=== PATIENT | male | born 1980 | race Caucasian/White ===

== ENCOUNTER 2017-01-09 16:53 | Emergency (ER) | payer MEDICAID, OTHER ==
[~2017-01-09] VITALS: Ht 180.3 cm; Wt 113.6 kg
[~2017-01-09 16:53] MED LIST: OLAN10TA3 PO
[2017-01-09] MEDS ORDERED: CITA20TA9 PO (17:02)
[2017-01-09] MEDS ORDERED: HALO5 PO (17:02)
[2017-01-09] MEDS ORDERED: QUET400T12 PO (17:02)
[2017-01-09 17:17] LABS: BASOPHILS % (AUTO) 0.3 % (0.0-2.0); EOSINOPHILS % (AUTO) 1.1 % (1.0-6.0); HEMOGLOBIN 15.2 g/dL (13.5-17.5); LYMPHOCYTES # (AUTO) 1.8 K/uL (1.0-4.8); LYMPHOCYTES % (AUTO) 17.4 % (22.0-44.0); MEAN CORPUSCULAR HEMOGLOBIN 29.1 pg (26.0-34.0); MEAN CORPUSCULAR HGB CONC 32.9 G/dL (31.0-37.0); MEAN CORPUSCULAR VOLUME 88 fL (80-100); MONOCYTES # (AUTO) 0.7 K/uL (0.1-1.0); MONOCYTES % (AUTO) 7.2 % (2.0-9.0); NEUTROPHILS # (AUTO) 7.7 K/uL (1.8-7.7); PLATELET COUNT (AUTO) 191 K/uL (150-450); RED CELL DISTRIBUTION WIDTH 15.1 % (11.5-14.5); WHITE BLOOD COUNT (AUTO) 10.4 K/uL (4.5-11.0)
[2017-01-09 17:35] LABS: ANION GAP 8 mmol/L (8-16); CALCIUM, TOTAL 8.4 mg/dL (8.8-10.5); CARBON DIOXIDE 31 mmol/L (22-29); CHLORIDE 104 mmol/L (98-107); CREATININE 0.94 mg/dL (0.60-1.30); GLOMERULAR FILTR. RATE CALC > 60 mL/min (>60); POTASSIUM 3.7 mmol/L (3.5-5.1); SODIUM SERUM 143 mmol/L (136-145); UREA NITROGEN, BLOOD 11 mg/dL (7-18)
[2017-01-09 17:44] LABS: ALANINE AMINOTRANSFERASE 99 U/L (12-78); ALBUMIN 3.4 g/dL (3.4-5.0); ASPARTATE AMINOTRANSFERASE 42 U/L (15-37); BILIRUBIN,TOTAL 0.3 mg/dL (0.1-1.0); TOTAL PROTEIN, SERUM 7.6 g/dL (6.4-8.2)
[2017-01-09 20:07] VITALS: BP 124/78
== END 2017-01-09 20:37 | disposition home or self-care (01) ==
LOC: EMS 16:54
DX: F25.9 Schizoaffective disorder, unspecified (principal); R79.89 Other specified abnormal findings of blood chemistry; F17.210 Nicotine dependence, cigarettes, uncomplicated; F31.9 Bipolar disorder, unspecified
CPT/HCPCS: 36415; 80053; 80307; 85025; 99284; G0480

== ENCOUNTER 2017-01-16 15:22 | Inpatient (IN) | payer MEDICAID, OTHER ==
[~2017-01-16] VITALS: Ht 180.3 cm; Wt 130.7 kg
[~2017-01-16 15:22] MED LIST changes: +CITA20TA9 PO; +HALO5 PO; -OLAN10TA3 PO; +QUET400T12 PO
[2017-01-16] MEDS ORDERED: ARIP10TA14 PO (16:19)
[2017-01-16] MEDS ORDERED: LORazepam 2 MG TABLET PO ONE (16:45)
[2017-01-16] MEDS ORDERED: HALOPERIDOL 5 MG TABLET PO ONE (16:45)
[2017-01-16] MEDS ORDERED: ZOLPIDEM TARTRATE 10 MG TABLET PO PRN (16:45)
[2017-01-16 17:49] LABS: BASOPHILS # (AUTO) 0.06 K/uL (0.00-0.20); BASOPHILS % (AUTO) 0.5 % (0.0-2.0); EOSINOPHILS # (AUTO) 0.14 K/uL (0.00-0.70); EOSINOPHILS % (AUTO) 1.25 % (1.0-6.0); HEMATOCRIT 46.6 % (41-53); HEMOGLOBIN 15.3 g/dL (13.5-17.5); LYMPHOCYTES # (AUTO) 1.5 K/uL (1.0-4.8); LYMPHOCYTES % (AUTO) 13.5 % (22.0-44.0); MEAN CORPUSCULAR HEMOGLOBIN 28.7 pg (26.0-34.0); MEAN CORPUSCULAR HGB CONC 32.9 G/dL (31.0-37.0); MEAN CORPUSCULAR VOLUME 87 fL (80-100); MONOCYTES # (AUTO) 0.5 K/uL (0.1-1.0); MONOCYTES % (AUTO) 4.2 % (2.0-9.0); NEUTROPHILS # (AUTO) 8.8 K/uL (1.8-7.7); NEUTROPHILS % (AUTO) 80.6 % (40.0-70.0); PLATELET COUNT (AUTO) 176 K/uL (150-450); RED BLOOD CELL COUNT(AUTO) 5.34 MIL/uL (4.50-5.90); RED CELL DISTRIBUTION WIDTH 14.9 % (11.5-14.5); WHITE BLOOD COUNT (AUTO) 10.9 K/uL (4.5-11.0)
[2017-01-16 18:01] LABS: ANION GAP 7 mmol/L (8-16); CALCIUM, TOTAL 8.5 mg/dL (8.8-10.5); CARBON DIOXIDE 30 mmol/L (22-29); CHLORIDE 102 mmol/L (98-107); CREATININE 1.03 mg/dL (0.60-1.30); GLOMERULAR FILTR. RATE CALC > 60 mL/min (>60); POTASSIUM 3.8 mmol/L (3.5-5.1); SODIUM SERUM 139 mmol/L (136-145); UREA NITROGEN, BLOOD 12 mg/dL (7-18)
[2017-01-16 18:07] LABS: ALANINE AMINOTRANSFERASE 88 U/L (12-78); ALBUMIN 3.3 g/dL (3.4-5.0); ASPARTATE AMINOTRANSFERASE 44 U/L (15-37); BILIRUBIN,TOTAL 0.3 mg/dL (0.1-1.0); TOTAL PROTEIN, SERUM 7.4 g/dL (6.4-8.2)
[2017-01-16] MEDS: AmLODIPine BESYLATE 5 MG TABLET PO SCH (20:06)
[2017-01-16] MEDS: HALOPERIDOL 5 MG TABLET PO PRN (20:30)
[2017-01-16] MEDS: LORazepam 2 MG TABLET PO PRN (20:30)
[2017-01-16] MEDS ORDERED: INFLUENZA VIRUS VACCINE QVS 2016-17 (3YR+)/PF 60 MCG/0.5 ML SYRINGE IM ONE (21:30)
[2017-01-17 08:00] VITALS: BP 127/62
[2017-01-17] MEDS: AmLODIPine BESYLATE 5 MG TABLET PO SCH (09:40)
[2017-01-17] MEDS: NICOTINE 21 MG/24 HOUR PATCH TD SCH (09:41)
[2017-01-17] MEDS ORDERED: CITA10TA68 PO (13:25)
[2017-01-17 16:30] VITALS: BP 128/70
[2017-01-17] MEDS ORDERED: OLANZapine 10 MG TABLET PO SCH (21:00)
[2017-01-17] MEDS ORDERED: IBUPROFEN 400 MG TABLET PO PRN (23:15)
[2017-01-17] MEDS ORDERED: ACETAMINOPHEN 325 MG TABLET PO PRN (23:15)
[2017-01-18 08:00] VITALS: BP 136/95
[2017-01-18] MEDS: LORazepam 2 MG TABLET PO PRN ×2 (08:04→12:08)
[2017-01-18] MEDS: AmLODIPine BESYLATE 5 MG TABLET PO SCH (08:04)
[2017-01-18] MEDS: NICOTINE 21 MG/24 HOUR PATCH TD SCH (08:05)
[2017-01-18] MEDS: HALOPERIDOL 5 MG TABLET PO PRN (11:25)
[2017-01-18 19:13] VITALS: BP 127/60
[2017-01-18] MEDS ORDERED: OLANZapine 10 MG TABLET PO SCH (21:00)
[2017-01-19 04:47] VITALS: BP 128/86
[2017-01-19 08:00] VITALS: BP 157/105
[2017-01-19] MEDS: AmLODIPine BESYLATE 5 MG TABLET PO SCH (08:17)
[2017-01-19] MEDS ORDERED: ARIPiprazole ER SUSPENSION 400 MG PRE-FILLED DUAL CHAMBER SYRINGE IM SCH (09:00)
[2017-01-19] MEDS: NICOTINE 21 MG/24 HOUR PATCH TD SCH (09:00)
[2017-01-19] MEDS: CITALOPRAM HYDROBROMIDE 10 MG TABLET PO SCH (10:02)
[2017-01-19] MEDS: LORazepam 2 MG TABLET PO PRN ×2 (12:26→16:16)
[2017-01-19] MEDS: HALOPERIDOL 5 MG TABLET PO PRN (16:08)
[2017-01-19 16:19] VITALS: BP 142/66
[2017-01-19] MEDS ORDERED: QUEtiapine FUMARATE 200 MG TABLET PO SCH (21:00)
[2017-01-20] MEDS: LORazepam 2 MG TABLET PO PRN (06:40)
[2017-01-20 06:59] VITALS: BP 138/87
[2017-01-20 08:01] VITALS: BP 148/90
[2017-01-20] MEDS: AmLODIPine BESYLATE 5 MG TABLET PO SCH (08:37)
[2017-01-20] MEDS: CITALOPRAM HYDROBROMIDE 10 MG TABLET PO SCH (08:38)
[2017-01-20] MEDS: NICOTINE 21 MG/24 HOUR PATCH TD SCH (08:39)
[2017-01-20] MEDS ORDERED: ARIP400S3 IM (10:16)
[2017-01-20] MEDS ORDERED: AMLO-511 PO (10:19)
== END 2017-01-20 12:15 | disposition home or self-care (01) | DRG 750 ==
LOC: EMS 15:26 → 3EI 18:52
PROVIDERS: ADMIT Psychiatry & Neurology Child & Adolescent Psychiatry; ATTEND Psychiatry & Neurology Child & Adolescent Psychiatry
DX: F25.1 Schizoaffective disorder, depressive type (principal); R45.851 Suicidal ideations; I10 Essential (primary) hypertension; F31.9 Bipolar disorder, unspecified; F12.10 Cannabis abuse, uncomplicated; F10.10 Alcohol abuse, uncomplicated; F17.200 Nicotine dependence, unspecified, uncomplicated; Z79.899 Other long term (current) drug therapy; Z71.41 Alcohol abuse counseling and surveillance of alcoholic; Z71.51 Drug abuse counseling and surveillance of drug abuser; Z28.21 Immunization not carried out because of patient refusal
CPT/HCPCS: 87081; 99285; G0480; J0401

== ENCOUNTER 2017-01-29 02:30 | Inpatient (IN) | payer MEDICAID, OTHER ==
[~2017-01-29] VITALS: Ht 182.9 cm; Wt 133.4 kg
[~2017-01-29 02:30] MED LIST changes: +AMLO-511 PO; +ARIP400S3 IM; +CITA10TA68 PO; -CITA20TA9 PO; -HALO5 PO
[2017-01-29 03:09] LABS: BASOPHILS % (AUTO) 0.5 % (0.0-2.0); EOSINOPHILS % (AUTO) 4.5 % (1.0-6.0); HEMATOCRIT 47.5 % (41-53); HEMOGLOBIN 15.4 g/dL (13.5-17.5); LYMPHOCYTES # (AUTO) 2.3 K/uL (1.0-4.8); LYMPHOCYTES % (AUTO) 24.4 % (22.0-44.0); MEAN CORPUSCULAR HEMOGLOBIN 28.7 pg (26.0-34.0); MEAN CORPUSCULAR HGB CONC 32.4 G/dL (31.0-37.0); MEAN CORPUSCULAR VOLUME 89 fL (80-100); MONOCYTES # (AUTO) 0.5 K/uL (0.1-1.0); NEUTROPHILS # (AUTO) 6.3 K/uL (1.8-7.7); NEUTROPHILS % (AUTO) 65.6 % (40.0-70.0); PLATELET COUNT (AUTO) 195 K/uL (150-450); RED BLOOD CELL COUNT(AUTO) 5.36 MIL/uL (4.50-5.90); RED CELL DISTRIBUTION WIDTH 15.1 % (11.5-14.5); WHITE BLOOD COUNT (AUTO) 9.6 K/uL (4.5-11.0)
[2017-01-29 03:22] LABS: ANION GAP 8 mmol/L (8-16); CALCIUM, TOTAL 8.5 mg/dL (8.8-10.5); CARBON DIOXIDE 30 mmol/L (22-29); CHLORIDE 103 mmol/L (98-107); CREATININE 0.94 mg/dL (0.60-1.30); GLOMERULAR FILTR. RATE CALC > 60 mL/min (>60); SODIUM SERUM 141 mmol/L (136-145); UREA NITROGEN, BLOOD 12 mg/dL (7-18)
[2017-01-29 03:28] LABS: ALANINE AMINOTRANSFERASE 104 U/L (12-78); ALBUMIN 3.4 g/dL (3.4-5.0); ASPARTATE AMINOTRANSFERASE 82 U/L (15-37); BILIRUBIN,TOTAL 0.4 mg/dL (0.1-1.0); TOTAL PROTEIN, SERUM 7.1 g/dL (6.4-8.2)
[2017-01-29] MEDS ORDERED: ZOLPIDEM TARTRATE 10 MG TABLET PO PRN (06:00)
[2017-01-29 06:12] LABS: APPEARANCE,URINE CLOUDY (CLEAR); GLUCOSE, URINE (UA) NEGATIVE (NEGATIVE); KETONES,URINE NEGATIVE (NEGATIVE); LEUKOCYTE ESTERASE ,URINE NEGATIVE (NEGATIVE); OCCULT BLOOD,URINE NEGATIVE (NEGATIVE); PROTEIN,URINE NEGATIVE (NEGATIVE)
[2017-01-29 06:17] LABS: ADD UA MICROSCOPIC NO
[2017-01-29 09:40] VITALS: BP 159/110
[2017-01-29 12:38] VITALS: BP 128/75
[2017-01-29] MEDS ORDERED: CloNIDine HCL 0.1 MG TABLET PO PRN (14:00)
[2017-01-29] MEDS: CITALOPRAM HYDROBROMIDE 10 MG TABLET PO SCH (14:12)
[2017-01-29] MEDS ORDERED: INFLUENZA VIRUS VACCINE QVS 2016-17 (3YR+)/PF 60 MCG/0.5 ML SYRINGE IM ONE (15:15)
[2017-01-29 16:00] VITALS: BP 135/68
[2017-01-29] MEDS ORDERED: ACETAMINOPHEN 325 MG TABLET PO PRN (17:15)
[2017-01-29] MEDS ORDERED: IBUPROFEN 400 MG TABLET PO PRN (17:15)
[2017-01-29] MEDS: QUEtiapine FUMARATE 200 MG TABLET PO SCH (20:31)
[2017-01-30 06:53] VITALS: BP 128/83
[2017-01-30 08:24] LABS: HEMOGLOBIN A1C 5.7 % (4.5-6.2)
[2017-01-30 08:41] LABS: CHOL/HDL RATIO 3.4 (4.2-7.3); THYROID STIMULATING HORMONE 1.16 uIU/mL (0.36-3.74)
[2017-01-30 08:42] VITALS: BP 107/68
[2017-01-30] MEDS: AmLODIPine BESYLATE 5 MG TABLET PO SCH (09:01)
[2017-01-30] MEDS: CITALOPRAM HYDROBROMIDE 10 MG TABLET PO SCH (09:01)
[2017-01-30 16:00] VITALS: BP 121/74
[2017-01-30] MEDS: LORazepam 2 MG TABLET PO PRN (17:27)
[2017-01-30] MEDS: QUEtiapine FUMARATE 200 MG TABLET PO SCH (21:11)
[2017-01-30 23:01] LABS: GLUCOSE,POINT OF CARE 118 MG/DL (70-110)
[2017-01-31 00:35] VITALS: BP 108/74
[2017-01-31] MEDS: HALOPERIDOL 5 MG TABLET PO PRN ×2 (01:24→16:45)
[2017-01-31] MEDS: LORazepam 2 MG TABLET PO PRN ×2 (01:25→16:45)
[2017-01-31 08:16] VITALS: BP 149/83
[2017-01-31] MEDS: AmLODIPine BESYLATE 5 MG TABLET PO SCH (09:54)
[2017-01-31] MEDS: CITALOPRAM HYDROBROMIDE 10 MG TABLET PO SCH (09:54)
[2017-01-31 16:14] VITALS: BP 148/82
[2017-01-31] MEDS: QUEtiapine FUMARATE 200 MG TABLET PO SCH (20:35)
[2017-02-01 06:42] VITALS: BP 132/76
[2017-02-01 08:16] VITALS: BP 121/63
[2017-02-01] MEDS: CITALOPRAM HYDROBROMIDE 10 MG TABLET PO SCH (09:29)
[2017-02-01] MEDS: AmLODIPine BESYLATE 5 MG TABLET PO SCH (09:29)
[2017-02-16] MEDS ORDERED: ARIPiprazole ER SUSPENSION 400 MG PRE-FILLED DUAL CHAMBER SYRINGE IM SCH (09:00)
== END 2017-02-01 16:20 | disposition home or self-care (01) | DRG 750 ==
LOC: EMS 02:31 → EEVIPCON 02:31 → B3A 06:30
DX: F25.1 Schizoaffective disorder, depressive type (principal); R45.851 Suicidal ideations; I10 Essential (primary) hypertension; F17.210 Nicotine dependence, cigarettes, uncomplicated; F12.90 Cannabis use, unspecified, uncomplicated; F15.90 Other stimulant use, unspecified, uncomplicated; Z79.899 Other long term (current) drug therapy; Z28.21 Immunization not carried out because of patient refusal
CPT/HCPCS: 82962; 83036; 84443; 87081; 99285; 99406; G0480

== ENCOUNTER 2017-02-13 10:23 | Inpatient (IN) | payer MEDICAID, OTHER ==
[~2017-02-13] VITALS: Ht 182.9 cm; Wt 127.3 kg
[~2017-02-13 10:23] MED LIST changes: -ARIP400S3 IM
[2017-02-13] MEDS ORDERED: HALO1 PO (11:03)
[2017-02-13] MEDS: HALOPERIDOL LACTATE 5 MG/ML VIAL IM ONE ×2 (11:29→12:21)
[2017-02-13] MEDS ORDERED: LORazepam 2 MG/ML VIAL IM ONE ×2 (11:30→16:15)
[2017-02-13] MEDS ORDERED: DiphenhydrAMINE HCL 50 MG/ML VIAL IM ONE (11:30)
[2017-02-13 11:34] LABS: BASOPHILS % (AUTO) 0.1 % (0.0-2.0); EOSINOPHILS % (AUTO) 0.1 % (1.0-6.0); HEMATOCRIT 50.9 % (41-53); HEMOGLOBIN 16.7 g/dL (13.5-17.5); LYMPHOCYTES # (AUTO) 1.5 K/uL (1.0-4.8); LYMPHOCYTES % (AUTO) 7.5 % (22.0-44.0); MEAN CORPUSCULAR HEMOGLOBIN 28.8 pg (26.0-34.0); MEAN CORPUSCULAR HGB CONC 32.7 G/dL (31.0-37.0); MEAN CORPUSCULAR VOLUME 88 fL (80-100); MONOCYTES # (AUTO) 0.6 K/uL (0.1-1.0); MONOCYTES % (AUTO) 2.8 % (2.0-9.0); NEUTROPHILS # (AUTO) 18.2 K/uL (1.8-7.7); PLATELET COUNT (AUTO) 298 K/uL (150-450); RED BLOOD CELL COUNT(AUTO) 5.79 MIL/uL (4.50-5.90); RED CELL DISTRIBUTION WIDTH 15.3 % (11.5-14.5); WHITE BLOOD COUNT (AUTO) 20.3 K/uL (4.5-11.0)
[2017-02-13 11:39] LABS: NEUTROPHILS % (AUTO) 89.5 % (40.0-70.0)
[2017-02-13 11:44] LABS: ANION GAP 13 mmol/L (8-16); CALCIUM, TOTAL 9.2 mg/dL (8.8-10.5); CARBON DIOXIDE 27 mmol/L (22-29); CHLORIDE 96 mmol/L (98-107); CREATININE 1.47 mg/dL (0.60-1.30); GLOMERULAR FILTR. RATE CALC 55 mL/min (>60); POTASSIUM 4.2 mmol/L (3.5-5.1); SODIUM SERUM 136 mmol/L (136-145); UREA NITROGEN, BLOOD 20 mg/dL (7-18)
[2017-02-13 11:53] LABS: ALANINE AMINOTRANSFERASE 88 U/L (12-78); ALBUMIN 4.2 g/dL (3.4-5.0); ASPARTATE AMINOTRANSFERASE 57 U/L (15-37); BILIRUBIN,TOTAL 0.8 mg/dL (0.1-1.0); TOTAL PROTEIN, SERUM 8.8 g/dL (6.4-8.2)
[2017-02-13] MEDS ORDERED: SODIUM CHLORIDE 0.9% 1,000 ML IV ONE (12:00)
[2017-02-13 12:07] LABS: RBC MORPHOLOGY COMMENT NORMAL RBC MORPH
[2017-02-13 12:43] LABS: APPEARANCE,URINE CLOUDY (CLEAR); GLUCOSE, URINE (UA) NEGATIVE (NEGATIVE); KETONES,URINE TRACE mg/dL (NEGATIVE); LEUKOCYTE ESTERASE ,URINE NEGATIVE (NEGATIVE); OCCULT BLOOD,URINE NEGATIVE (NEGATIVE); PH,URINE 5.5 (5.0-8.0); PROTEIN,URINE POS 1+ (NEGATIVE)
[2017-02-13 12:48] LABS: RBC,URINE None Seen /HPF (0-2); SQUAMOUS EPITHELIAL CELL,UR Rare /LPF (None Seen); WBC,URINE 0-2 /HPF (0-5)
[2017-02-13 13:57] LABS: BASOPHILS % (AUTO) 0.1 % (0.0-2.0); EOSINOPHILS % (AUTO) 0.1 % (1.0-6.0); HEMATOCRIT 45.9 % (41-53); HEMOGLOBIN 15.1 g/dL (13.5-17.5); LYMPHOCYTES # (AUTO) 1.5 K/uL (1.0-4.8); MEAN CORPUSCULAR HEMOGLOBIN 28.9 pg (26.0-34.0); MEAN CORPUSCULAR VOLUME 88 fL (80-100); MONOCYTES # (AUTO) 0.6 K/uL (0.1-1.0); MONOCYTES % (AUTO) 4.1 % (2.0-9.0); NEUTROPHILS # (AUTO) 12.8 K/uL (1.8-7.7); PLATELET COUNT (AUTO) 210 K/uL (150-450); RED BLOOD CELL COUNT(AUTO) 5.24 MIL/uL (4.50-5.90); RED CELL DISTRIBUTION WIDTH 15.7 % (11.5-14.5)
[2017-02-13 14:00] LABS: NEUTROPHILS % (AUTO) 85.7 % (40.0-70.0)
[2017-02-13 17:12] LABS: SALICYLATE 2.6 mg/dL (2.8-20.0)
[2017-02-13 18:10] LABS: CREATINE KINASE MB 4.2 ng/mL (0-5); CREATINE KINASE, TOTAL 397 U/L (39-308)
[2017-02-13 18:11] LABS: ACETAMINOPHEN < 2 mcg/mL (10-30)
[2017-02-14] MEDS: HALOPERIDOL 5 MG TABLET PO PRN (12:16)
[2017-02-14] MEDS: LORazepam 2 MG TABLET PO PRN (12:16)
[2017-02-14 12:26] VITALS: BP 136/92
[2017-02-14 17:21] VITALS: BP 142/90
[2017-02-15 08:25] VITALS: BP 143/83
[2017-02-15] MEDS ORDERED: ARIP400S3 IM (12:01)
[2017-02-15] MEDS: LORazepam 2 MG TABLET PO PRN ×2 (12:05→17:56)
[2017-02-15] MEDS: HALOPERIDOL 5 MG TABLET PO PRN ×2 (12:05→17:56)
[2017-02-15] MEDS: QUEtiapine FUMARATE 200 MG TABLET PO SCH (20:39)
[2017-02-16 08:00] VITALS: BP 147/91
[2017-02-16] MEDS: CITALOPRAM HYDROBROMIDE 10 MG TABLET PO SCH (08:21)
[2017-02-16] MEDS ORDERED: ARIPiprazole ER SUSPENSION 400 MG PRE-FILLED DUAL CHAMBER SYRINGE IM SCH (09:00)
[2017-02-16] MEDS: LORazepam 2 MG TABLET PO PRN (12:38)
[2017-02-16] MEDS: HALOPERIDOL 5 MG TABLET PO PRN (12:39)
[2017-02-16] MEDS: QUEtiapine FUMARATE 200 MG TABLET PO SCH (21:34)
[2017-02-17] MEDS: LORazepam 2 MG TABLET PO PRN ×3 (00:02→21:57)
[2017-02-17] MEDS: ZOLPIDEM TARTRATE 10 MG TABLET PO PRN ×2 (00:02→21:57)
[2017-02-17 08:00] VITALS: BP 106/81
[2017-02-17] MEDS: HALOPERIDOL 5 MG TABLET PO PRN ×2 (11:07→22:30)
[2017-02-17] MEDS: CITALOPRAM HYDROBROMIDE 10 MG TABLET PO SCH (11:08)
[2017-02-17 16:06] VITALS: BP 137/90
[2017-02-17] MEDS: QUEtiapine FUMARATE 200 MG TABLET PO SCH (20:00)
[2017-02-18] MEDS ORDERED: GuaiFENesin/D-METHORPHAN [SUGAR-FREE] 200-20MG/10 ML SYRUP UDCUP PO PRN (00:15)
[2017-02-18 00:16] VITALS: BP 100/65
[2017-02-18] MEDS: HALOPERIDOL 5 MG TABLET PO PRN (07:55)
[2017-02-18] MEDS: LORazepam 2 MG TABLET PO PRN (07:55)
[2017-02-18 08:00] VITALS: BP 123/90
[2017-02-18] MEDS: CITALOPRAM HYDROBROMIDE 10 MG TABLET PO SCH (08:12)
== END 2017-02-18 11:30 | disposition home or self-care (01) | DRG 750 ==
LOC: EMS 11:00 → EEVIPCON 11:00 → AHU 02-14 11:25 → 3EC 02-14 16:37
PROVIDERS: ADMIT Psychiatry & Neurology Child & Adolescent Psychiatry
DX: F25.0 Schizoaffective disorder, bipolar type (principal); N17.9 Acute kidney failure, unspecified; R74.0 Nonspecific elevation of levels of transaminase and lactic acid dehydrogenase [LDH]; Z78.1 Physical restraint status; D72.829 Elevated white blood cell count, unspecified; F41.9 Anxiety disorder, unspecified; F19.90 Other psychoactive substance use, unspecified, uncomplicated; F17.200 Nicotine dependence, unspecified, uncomplicated; Z79.899 Other long term (current) drug therapy
CPT/HCPCS: 87081; 93005; 96360; 96372; 99285; G0480; G0481; J0401; J1200; J1630; J2060

== ENCOUNTER 2017-02-22 18:43 | Inpatient (IN) | payer MEDICAID, OTHER ==
[~2017-02-22] VITALS: Ht 182.9 cm; Wt 128.9 kg
[~2017-02-22 18:43] MED LIST changes: -AMLO-511 PO; +ARIP400S3 IM
[2017-02-22 19:11] LABS: BASOPHILS % (AUTO) 0.6 % (0.0-2.0); EOSINOPHILS % (AUTO) 3.3 % (1.0-6.0); HEMATOCRIT 42.6 % (41-53); LYMPHOCYTES # (AUTO) 2.1 K/uL (1.0-4.8); LYMPHOCYTES % (AUTO) 23.1 % (22.0-44.0); MEAN CORPUSCULAR HEMOGLOBIN 28.9 pg (26.0-34.0); MEAN CORPUSCULAR HGB CONC 32.9 G/dL (31.0-37.0); MEAN CORPUSCULAR VOLUME 88 fL (80-100); MONOCYTES # (AUTO) 0.4 K/uL (0.1-1.0); MONOCYTES % (AUTO) 4.9 % (2.0-9.0); NEUTROPHILS # (AUTO) 6.2 K/uL (1.8-7.7); NEUTROPHILS % (AUTO) 68.1 % (40.0-70.0); PLATELET COUNT (AUTO) 152 K/uL (150-450); RED BLOOD CELL COUNT(AUTO) 4.85 MIL/uL (4.50-5.90); RED CELL DISTRIBUTION WIDTH 15.4 % (11.5-14.5)
[2017-02-22 19:20] LABS: ANION GAP 6 mmol/L (8-16); CALCIUM, TOTAL 8.8 mg/dL (8.8-10.5); CARBON DIOXIDE 32 mmol/L (22-29); CHLORIDE 103 mmol/L (98-107); CREATININE 1.15 mg/dL (0.60-1.30); GLOMERULAR FILTR. RATE CALC > 60 mL/min (>60); POTASSIUM 4.5 mmol/L (3.5-5.1); SODIUM SERUM 141 mmol/L (136-145); UREA NITROGEN, BLOOD 14 mg/dL (7-18)
[2017-02-22 19:25] LABS: ALANINE AMINOTRANSFERASE 89 U/L (12-78); ALBUMIN 3.3 g/dL (3.4-5.0); ASPARTATE AMINOTRANSFERASE 48 U/L (15-37); BILIRUBIN,TOTAL 0.3 mg/dL (0.1-1.0); TOTAL PROTEIN, SERUM 7.2 g/dL (6.4-8.2)
[2017-02-22] MEDS ORDERED: HALOPERIDOL LACTATE 5 MG/ML VIAL IM ONE (20:15)
[2017-02-22] MEDS ORDERED: LORazepam 2 MG/ML VIAL IM ONE (20:15)
[2017-02-22] MEDS ORDERED: DiphenhydrAMINE HCL 50 MG/ML VIAL IM ONE (20:15)
[2017-02-22] MEDS ORDERED: LORazepam 2 MG/ML VIAL ONE (20:16)
[2017-02-22] MEDS ORDERED: DiphenhydrAMINE HCL 50 MG/ML VIAL ONE (20:16)
[2017-02-22] MEDS ORDERED: HALOPERIDOL LACTATE 5 MG/ML VIAL ONE (20:16)
[2017-02-22 22:00] VITALS: BP 128/87
[2017-02-23] MEDS ORDERED: PNEUMOCOCCAL VACCINE POLYVALENT 0.5 ML VIAL [PPSV23] IM ONE (07:00)
[2017-02-23] MEDS ORDERED: INFLUENZA VIRUS VACCINE QVS 2016-17 (3YR+)/PF 60 MCG/0.5 ML SYRINGE IM ONE (07:00)
[2017-02-23] MEDS: LORazepam 2 MG TABLET PO PRN ×2 (07:05→20:01)
[2017-02-23 09:02] VITALS: BP 125/79
[2017-02-23 09:08] LABS: ADD UA MICROSCOPIC NO; APPEARANCE,URINE CLEAR (CLEAR); GLUCOSE, URINE (UA) NEGATIVE (NEGATIVE); KETONES,URINE NEGATIVE (NEGATIVE); LEUKOCYTE ESTERASE ,URINE NEGATIVE (NEGATIVE); OCCULT BLOOD,URINE NEGATIVE (NEGATIVE); PROTEIN,URINE NEGATIVE (NEGATIVE)
[2017-02-23] MEDS: CITALOPRAM HYDROBROMIDE 10 MG TABLET PO SCH (12:21)
[2017-02-23 16:37] VITALS: BP 101/67
[2017-02-23] MEDS: QUEtiapine FUMARATE 200 MG TABLET PO SCH (20:01)
[2017-02-24] MEDS: ZOLPIDEM TARTRATE 10 MG TABLET PO PRN (00:27)
[2017-02-24] MEDS: CITALOPRAM HYDROBROMIDE 10 MG TABLET PO SCH (08:02)
[2017-02-24] MEDS: LORazepam 2 MG TABLET PO PRN (08:02)
[2017-02-24] MEDS: HALOPERIDOL 5 MG TABLET PO PRN (08:02)
[2017-02-24 08:30] VITALS: BP 129/79
[2017-02-24 17:19] VITALS: BP 118/76
[2017-02-24] MEDS: QUEtiapine FUMARATE 200 MG TABLET PO SCH (20:20)
[2017-02-25 08:00] VITALS: BP 113/60
[2017-02-25] MEDS: CITALOPRAM HYDROBROMIDE 10 MG TABLET PO SCH (09:56)
[2017-02-25] MEDS: LORazepam 2 MG TABLET PO PRN ×2 (13:10→19:13)
[2017-02-25] MEDS: QUEtiapine FUMARATE 200 MG TABLET PO SCH (20:45)
[2017-02-26] MEDS: ZOLPIDEM TARTRATE 10 MG TABLET PO PRN (00:50)
[2017-02-26] MEDS: LORazepam 2 MG TABLET PO PRN ×2 (05:13→10:45)
[2017-02-26 08:35] VITALS: BP 136/77
[2017-02-26] MEDS: CITALOPRAM HYDROBROMIDE 10 MG TABLET PO SCH (10:00)
[2017-02-26] MEDS: HALOPERIDOL 5 MG TABLET PO PRN (10:45)
[2017-02-26 16:45] VITALS: BP 137/82
[2017-02-26] MEDS: QUEtiapine FUMARATE 200 MG TABLET PO SCH (21:12)
[2017-02-27 08:13] VITALS: BP 133/74
[2017-02-27] MEDS: CITALOPRAM HYDROBROMIDE 10 MG TABLET PO SCH (08:30)
[2017-02-27] MEDS: LORazepam 2 MG TABLET PO PRN (08:31)
[2017-02-27 16:00] VITALS: BP 122/75
[2017-02-27] MEDS: QUEtiapine FUMARATE 200 MG TABLET PO SCH (20:05)
[2017-02-28] MEDS: CITALOPRAM HYDROBROMIDE 10 MG TABLET PO SCH (10:42)
[2017-02-28] MEDS: HALOPERIDOL 5 MG TABLET PO PRN ×2 (10:43→18:00)
[2017-02-28 11:33] VITALS: BP 132/84
[2017-02-28] MEDS: LORazepam 2 MG TABLET PO PRN (17:59)
[2017-02-28 20:29] VITALS: BP 122/77
[2017-02-28] MEDS: QUEtiapine FUMARATE 200 MG TABLET PO SCH (20:55)
[2017-03-01 08:12] VITALS: BP 131/95
[2017-03-01 08:30] VITALS: BP 131/95
[2017-03-01] MEDS: CITALOPRAM HYDROBROMIDE 10 MG TABLET PO SCH (10:33)
[2017-03-01] MEDS: LORazepam 2 MG TABLET PO PRN (12:04)
[2017-03-01] MEDS: HALOPERIDOL 5 MG TABLET PO PRN (12:04)
[2017-03-01 20:14] VITALS: BP 114/67
[2017-03-01] MEDS: QUEtiapine FUMARATE 200 MG TABLET PO SCH (20:16)
[2017-03-02 01:17] VITALS: BP 106/68
[2017-03-02] MEDS: LORazepam 2 MG TABLET PO PRN ×2 (01:17→09:40)
[2017-03-02] MEDS: ZOLPIDEM TARTRATE 10 MG TABLET PO PRN (01:17)
[2017-03-02] MEDS: CITALOPRAM HYDROBROMIDE 10 MG TABLET PO SCH (09:40)
[2017-03-02] MEDS: HALOPERIDOL 5 MG TABLET PO PRN (09:40)
[2017-03-16] MEDS ORDERED: ARIPiprazole ER SUSPENSION 400 MG PRE-FILLED DUAL CHAMBER SYRINGE IM SCH (09:00)
== END 2017-03-02 13:31 | disposition home or self-care (01) | DRG 750 ==
LOC: EMS 18:48 → 3EC 20:30 → 3EI 02-24 09:15
DX: F25.1 Schizoaffective disorder, depressive type (principal); R45.851 Suicidal ideations; Z59.0 Homelessness; F41.9 Anxiety disorder, unspecified; I10 Essential (primary) hypertension; F12.10 Cannabis abuse, uncomplicated; F17.210 Nicotine dependence, cigarettes, uncomplicated; Z79.899 Other long term (current) drug therapy; Z71.6 Tobacco abuse counseling; Z28.21 Immunization not carried out because of patient refusal
CPT/HCPCS: 87081; 96372; 99285; G0480; J1200; J1630; J2060

== ENCOUNTER 2017-03-17 19:18 | Emergency (ER) | payer MEDICAID, OTHER ==
[~2017-03-17] VITALS: Ht 182.9 cm; Wt 124.0 kg
[2017-03-17 20:09] LABS: BASOPHILS % (AUTO) 0.6 % (0.0-2.0); EOSINOPHILS % (AUTO) 2.2 % (1.0-6.0); HEMATOCRIT 48.3 % (41-53); HEMOGLOBIN 15.8 g/dL (13.5-17.5); LYMPHOCYTES # (AUTO) 2.3 K/uL (1.0-4.8); LYMPHOCYTES % (AUTO) 19.4 % (22.0-44.0); MEAN CORPUSCULAR HEMOGLOBIN 28.9 pg (26.0-34.0); MEAN CORPUSCULAR HGB CONC 32.6 G/dL (31.0-37.0); MEAN CORPUSCULAR VOLUME 89 fL (80-100); MONOCYTES # (AUTO) 0.7 K/uL (0.1-1.0); MONOCYTES % (AUTO) 6.2 % (2.0-9.0); NEUTROPHILS # (AUTO) 8.4 K/uL (1.8-7.7); NEUTROPHILS % (AUTO) 71.6 % (40.0-70.0); PLATELET COUNT (AUTO) 222 K/uL (150-450); RED BLOOD CELL COUNT(AUTO) 5.45 MIL/uL (4.50-5.90); RED CELL DISTRIBUTION WIDTH 15.5 % (11.5-14.5); WHITE BLOOD COUNT (AUTO) 11.8 K/uL (4.5-11.0)
[2017-03-17 20:16] LABS: ANION GAP 8 mmol/L (8-16); CALCIUM, TOTAL 9.1 mg/dL (8.8-10.5); CARBON DIOXIDE 29 mmol/L (22-29); CHLORIDE 105 mmol/L (98-107); CREATININE 0.98 mg/dL (0.60-1.30); GLOMERULAR FILTR. RATE CALC > 60 mL/min (>60); POTASSIUM 4.2 mmol/L (3.5-5.1); SODIUM SERUM 142 mmol/L (136-145); UREA NITROGEN, BLOOD 15 mg/dL (7-18)
[2017-03-17 20:22] LABS: ALANINE AMINOTRANSFERASE 84 U/L (12-78); ALBUMIN 3.5 g/dL (3.4-5.0); ASPARTATE AMINOTRANSFERASE 49 U/L (15-37); BILIRUBIN,TOTAL 0.4 mg/dL (0.1-1.0)
[2017-03-18] MEDS ORDERED: QUEtiapine FUMARATE 100 MG TABLET PO ONE (01:00)
[2017-03-18] MEDS ORDERED: DiphenhydrAMINE HCL 25 MG CAPSULE PO ONE (01:00)
[2017-03-18 01:44] VITALS: BP 128/71
== END 2017-03-18 01:51 | disposition home or self-care (01) ==
LOC: EMS 19:20
DX: F25.9 Schizoaffective disorder, unspecified (principal); F31.9 Bipolar disorder, unspecified; F17.210 Nicotine dependence, cigarettes, uncomplicated
CPT/HCPCS: 36415; 80053; 85025; 99284; G0480

== ENCOUNTER 2017-03-21 23:29 | Emergency (ER) | payer OTHER ==
[~2017-03-21] VITALS: Ht 180.3 cm; Wt 95.9 kg
[2017-03-21 23:43] VITALS: BP 163/106
[2017-03-21 23:51] LABS: BASOPHILS % (AUTO) 0.5 % (0.0-2.0); EOSINOPHILS % (AUTO) 1.8 % (1.0-6.0); HEMOGLOBIN 14.8 g/dL (13.5-17.5); LYMPHOCYTES # (AUTO) 1.9 K/uL (1.0-4.8); LYMPHOCYTES % (AUTO) 13.9 % (22.0-44.0); MEAN CORPUSCULAR HEMOGLOBIN 28.4 pg (26.0-34.0); MEAN CORPUSCULAR HGB CONC 32.1 G/dL (31.0-37.0); MEAN CORPUSCULAR VOLUME 88 fL (80-100); MONOCYTES # (AUTO) 0.8 K/uL (0.1-1.0); MONOCYTES % (AUTO) 5.9 % (2.0-9.0); NEUTROPHILS # (AUTO) 10.9 K/uL (1.8-7.7); NEUTROPHILS % (AUTO) 77.9 % (40.0-70.0); PLATELET COUNT (AUTO) 181 K/uL (150-450); RED CELL DISTRIBUTION WIDTH 14.7 % (11.5-14.5)
[2017-03-22 00:05] LABS: ALANINE AMINOTRANSFERASE 75 U/L (12-78); ALBUMIN 3.4 g/dL (3.4-5.0); ANION GAP 6 mmol/L (8-16); ASPARTATE AMINOTRANSFERASE 46 U/L (15-37); BILIRUBIN,TOTAL 0.4 mg/dL (0.1-1.0); CALCIUM, TOTAL 8.9 mg/dL (8.8-10.5); CARBON DIOXIDE 31 mmol/L (22-29); CHLORIDE 102 mmol/L (98-107); CREATININE 1.14 mg/dL (0.60-1.30); GLOMERULAR FILTR. RATE CALC > 60 mL/min (>60); POTASSIUM 4.7 mmol/L (3.5-5.1); SODIUM SERUM 139 mmol/L (136-145); TOTAL PROTEIN, SERUM 7.6 g/dL (6.4-8.2)
[2017-03-22 00:11] LABS: UREA NITROGEN, BLOOD 19 mg/dL (7-18)
== END 2017-03-22 02:06 | disposition home or self-care (01) ==
LOC: EMS 23:30
DX: F25.9 Schizoaffective disorder, unspecified (principal); R45.851 Suicidal ideations; R44.0 Auditory hallucinations; F31.9 Bipolar disorder, unspecified; F17.210 Nicotine dependence, cigarettes, uncomplicated; F12.10 Cannabis abuse, uncomplicated
CPT/HCPCS: 36415; 80053; 80307; 85025; 99284; 99406; G0480

== ENCOUNTER 2017-04-12 21:50 | Emergency (ER) | payer OTHER ==
[~2017-04-12] VITALS: Ht 180.3 cm; Wt 131.8 kg
[2017-04-12 22:17] LABS: BASOPHILS % (AUTO) 0.2 % (0.0-2.0); EOSINOPHILS % (AUTO) 1.9 % (1.0-6.0); HEMATOCRIT 46.1 % (41-53); HEMOGLOBIN 14.8 g/dL (13.5-17.5); LYMPHOCYTES # (AUTO) 1.7 K/uL (1.0-4.8); MEAN CORPUSCULAR HEMOGLOBIN 28.8 pg (26.0-34.0); MEAN CORPUSCULAR HGB CONC 32.1 G/dL (31.0-37.0); MEAN CORPUSCULAR VOLUME 89 fL (80-100); MONOCYTES # (AUTO) 0.4 K/uL (0.1-1.0); MONOCYTES % (AUTO) 4.5 % (2.0-9.0); NEUTROPHILS # (AUTO) 7.1 K/uL (1.8-7.7); NEUTROPHILS % (AUTO) 75.4 % (40.0-70.0); PLATELET COUNT (AUTO) 157 K/uL (150-450); RED BLOOD CELL COUNT(AUTO) 5.15 MIL/uL (4.50-5.90); RED CELL DISTRIBUTION WIDTH 15.1 % (11.5-14.5); WHITE BLOOD COUNT (AUTO) 9.4 K/uL (4.5-11.0)
[2017-04-12 22:26] LABS: ANION GAP 5 mmol/L (8-16); CALCIUM, TOTAL 8.8 mg/dL (8.8-10.5); CARBON DIOXIDE 32 mmol/L (22-29); CHLORIDE 102 mmol/L (98-107); CREATININE 1.11 mg/dL (0.60-1.30); GLOMERULAR FILTR. RATE CALC > 60 mL/min (>60); POTASSIUM 4.5 mmol/L (3.5-5.1); SODIUM SERUM 139 mmol/L (136-145); UREA NITROGEN, BLOOD 12 mg/dL (7-18)
[2017-04-12] MEDS ORDERED: LORazepam 2 MG/ML VIAL IM ONE (22:30)
[2017-04-12] MEDS ORDERED: HALOPERIDOL LACTATE 5 MG/ML VIAL IM ONE (22:30)
[2017-04-12] MEDS ORDERED: DiphenhydrAMINE HCL 50 MG/ML VIAL IM ONE (22:30)
[2017-04-12 22:32] LABS: ALANINE AMINOTRANSFERASE 97 U/L (12-78); ALBUMIN 3.4 g/dL (3.4-5.0); ASPARTATE AMINOTRANSFERASE 54 U/L (15-37); BILIRUBIN,TOTAL 0.5 mg/dL (0.1-1.0); TOTAL PROTEIN, SERUM 7.5 g/dL (6.4-8.2)
[2017-04-13 07:57] VITALS: BP 124/69
== END 2017-04-13 07:59 | disposition home or self-care (01) ==
LOC: EMS 21:53
DX: F20.0 Paranoid schizophrenia (principal); K76.0 Fatty (change of) liver, not elsewhere classified; R79.89 Other specified abnormal findings of blood chemistry; F31.9 Bipolar disorder, unspecified; I10 Essential (primary) hypertension; F17.210 Nicotine dependence, cigarettes, uncomplicated
CPT/HCPCS: 36415; 80053; 80307; 85025; 96372; 99285; G0480; J1200; J1630; J2060

== ENCOUNTER 2017-05-10 20:50 | Emergency (ER) | payer OTHER ==
[~2017-05-10] VITALS: Ht 180.3 cm; Wt 131.5 kg
[2017-05-10 21:53] LABS: BASOPHILS # (AUTO) 0.04 K/uL (0.00-0.20); BASOPHILS % (AUTO) 0.4 % (0.0-2.0); EOSINOPHILS # (AUTO) 0.25 K/uL (0.00-0.70); EOSINOPHILS % (AUTO) 2.64 % (1.0-6.0); HEMATOCRIT 43.8 % (41-53); HEMOGLOBIN 14.7 g/dL (13.5-17.5); LYMPHOCYTES # (AUTO) 2.1 K/uL (1.0-4.8); LYMPHOCYTES % (AUTO) 21.8 % (22.0-44.0); MEAN CORPUSCULAR HEMOGLOBIN 29.6 pg (26.0-34.0); MEAN CORPUSCULAR HGB CONC 33.6 G/dL (31.0-37.0); MEAN CORPUSCULAR VOLUME 88 fL (80-100); MONOCYTES # (AUTO) 0.4 K/uL (0.1-1.0); MONOCYTES % (AUTO) 4.4 % (2.0-9.0); NEUTROPHILS # (AUTO) 6.7 K/uL (1.8-7.7); NEUTROPHILS % (AUTO) 70.8 % (40.0-70.0); PLATELET COUNT (AUTO) 174 K/uL (150-450); RED BLOOD CELL COUNT(AUTO) 4.97 MIL/uL (4.50-5.90); RED CELL DISTRIBUTION WIDTH 14.2 % (11.5-14.5); WHITE BLOOD COUNT (AUTO) 9.5 K/uL (4.5-11.0)
[2017-05-10 21:54] LABS: ANION GAP 7 mmol/L (8-16); CALCIUM, TOTAL 8.6 mg/dL (8.8-10.5); CARBON DIOXIDE 28 mmol/L (22-29); CHLORIDE 103 mmol/L (98-107); CREATININE 0.96 mg/dL (0.60-1.30); GLOMERULAR FILTR. RATE CALC > 60 mL/min (>60); POTASSIUM 3.8 mmol/L (3.5-5.1); SODIUM SERUM 138 mmol/L (136-145); UREA NITROGEN, BLOOD 15 mg/dL (7-18)
[2017-05-10 21:59] LABS: ALANINE AMINOTRANSFERASE 61 U/L (12-78); ALBUMIN 3.4 g/dL (3.4-5.0); ASPARTATE AMINOTRANSFERASE 36 U/L (15-37); BILIRUBIN,TOTAL 0.4 mg/dL (0.1-1.0); TOTAL PROTEIN, SERUM 7.1 g/dL (6.4-8.2)
[2017-05-10] MEDS: HydrOXYzine HCL 25 MG TABLET PO ONE (23:12)
[2017-05-10] MEDS: MUPIROCIN CALCIUM 2% 22 GM OINTMENT TP ONE (23:55)
[2017-05-10 23:58] VITALS: BP 127/79
== END 2017-05-11 | disposition home or self-care (01) ==
LOC: EMS 20:57
DX: F41.9 Anxiety disorder, unspecified (principal); T23.211A Burn of second degree of right thumb (nail), initial encounter; I10 Essential (primary) hypertension; F17.210 Nicotine dependence, cigarettes, uncomplicated; X08.8XXA Exposure to other specified smoke, fire and flames, initial encounter; Y93.89 Activity, other specified; Y92.89 Other specified places as the place of occurrence of the external cause; Y99.8 Other external cause status
CPT/HCPCS: 36415; 80053; 85025; 99284; 99406; G0480

== ENCOUNTER 2017-07-27 09:33 | Inpatient (IN) | payer MEDICAID, OTHER ==
[~2017-07-27] VITALS: Ht 177.8 cm; Wt 134.0 kg
[2017-07-27 10:30] LABS: BASOPHILS % (AUTO) 0.2 % (0.0-2.0); EOSINOPHILS % (AUTO) 3.2 % (1.0-6.0); HEMATOCRIT 43.6 % (41-53); HEMOGLOBIN 14.7 g/dL (13.5-17.5); LYMPHOCYTES # (AUTO) 1.7 K/uL (1.0-4.8); LYMPHOCYTES % (AUTO) 18.5 % (22.0-44.0); MEAN CORPUSCULAR HEMOGLOBIN 29.6 pg (26.0-34.0); MEAN CORPUSCULAR HGB CONC 33.8 G/dL (31.0-37.0); MEAN CORPUSCULAR VOLUME 87 fL (80-100); MONOCYTES # (AUTO) 0.5 K/uL (0.1-1.0); MONOCYTES % (AUTO) 5.9 % (2.0-9.0); NEUTROPHILS # (AUTO) 6.7 K/uL (1.8-7.7); NEUTROPHILS % (AUTO) 72.2 % (40.0-70.0); PLATELET COUNT (AUTO) 171 K/uL (150-450); RED BLOOD CELL COUNT(AUTO) 4.98 MIL/uL (4.50-5.90); RED CELL DISTRIBUTION WIDTH 14.8 % (11.5-14.5); WHITE BLOOD COUNT (AUTO) 9.2 K/uL (4.5-11.0)
[2017-07-27 10:39] LABS: ANION GAP 5 mmol/L (8-16); CALCIUM, TOTAL 8.7 mg/dL (8.8-10.5); CARBON DIOXIDE 29 mmol/L (22-29); CHLORIDE 105 mmol/L (98-107); CREATININE 1.08 mg/dL (0.60-1.30); GLOMERULAR FILTR. RATE CALC > 60 mL/min (>60); POTASSIUM 3.7 mmol/L (3.5-5.1); SODIUM SERUM 139 mmol/L (136-145); UREA NITROGEN, BLOOD 16 mg/dL (7-18)
[2017-07-27 10:45] LABS: ALANINE AMINOTRANSFERASE 83 U/L (12-78); ALBUMIN 3.2 g/dL (3.4-5.0); ASPARTATE AMINOTRANSFERASE 46 U/L (15-37); BILIRUBIN,TOTAL 0.4 mg/dL (0.1-1.0); TOTAL PROTEIN, SERUM 7.1 g/dL (6.4-8.2)
[2017-07-27] MEDS ORDERED: MAG HYDROX/AL HYDROX/SIMETH ES 30 ML SUSPENSION UDCUP PO PRN (12:00)
[2017-07-27] MEDS ORDERED: GuaiFENesin/D-METHORPHAN [SUGAR-FREE] 200-20MG/10 ML SYRUP UDCUP PO PRN (12:00)
[2017-07-27] MEDS ORDERED: MAGNESIUM HYDROXIDE SUSPENSION 30 ML UDCUP PO PRN (12:00)
[2017-07-27] MEDS ORDERED: LOPERAMIDE HCL 2 MG CAPSULE PO PRN (12:00)
[2017-07-27] MEDS ORDERED: PROMETHAZINE HCL 25 MG TABLET PO PRN (12:00)
[2017-07-27] MEDS ORDERED: TUBERCULIN, PURIFIED PROTEIN DERIVATIVE 5 TU/0.1 ML SYG ID ONE (12:00)
[2017-07-27] MEDS: ACETAMINOPHEN 325 MG TABLET PO PRN (14:39)
[2017-07-27 15:15] VITALS: BP 132/87
[2017-07-27] MEDS ORDERED: PERMETHRIN 5% 60 GM CREAM TP ONE (15:15)
[2017-07-27] MEDS: THIAMINE HCL 100 MG TABLET PO SCH (18:18)
[2017-07-27] MEDS ORDERED: QUEtiapine FUMARATE 100 MG TABLET PO SCH (21:00)
[2017-07-28 06:00] VITALS: BP 132/67
[2017-07-28 06:49] LABS: CHOL/HDL RATIO 3.7 (4.2-7.3)
[2017-07-28 08:28] VITALS: BP 112/64
[2017-07-28] MEDS: MULTIVITAMINS WITH MINERALS, THERAPEUTIC TABLET PO SCH (08:56)
[2017-07-28] MEDS: THIAMINE HCL 100 MG TABLET PO SCH ×2 (08:57→17:50)
[2017-07-28] MEDS: FOLIC ACID 1 MG TABLET PO SCH (08:57)
[2017-07-28] MEDS: ACETAMINOPHEN 325 MG TABLET PO PRN (14:32)
[2017-07-28] MEDS: LORazepam 2 MG TABLET PO PRN (15:33)
[2017-07-28] MEDS: QUEtiapine FUMARATE 100 MG TABLET PO PRN (15:33)
[2017-07-28 16:30] VITALS: BP 110/70
[2017-07-28] MEDS ORDERED: HALOPERIDOL LACTATE 5 MG/ML VIAL IM ONE (19:00)
[2017-07-28] MEDS ORDERED: DiphenhydrAMINE HCL 50 MG/ML VIAL IM ONE (19:00)
[2017-07-28] MEDS ORDERED: LORazepam 2 MG/ML VIAL IM ONE (19:00)
[2017-07-28] MEDS ORDERED: QUEtiapine FUMARATE 200 MG TABLET PO SCH (21:00)
[2017-07-29] MEDS: LORazepam 2 MG TABLET PO PRN ×2 (08:27→14:36)
[2017-07-29] MEDS: THIAMINE HCL 100 MG TABLET PO SCH ×2 (08:27→16:31)
[2017-07-29] MEDS: FOLIC ACID 1 MG TABLET PO SCH (08:27)
[2017-07-29] MEDS: QUEtiapine FUMARATE 100 MG TABLET PO PRN ×2 (08:27→14:36)
[2017-07-29] MEDS: HydrOXYzine PAMOATE 50 MG CAPSULE PO PRN ×2 (08:27→14:36)
[2017-07-29] MEDS: MULTIVITAMINS WITH MINERALS, THERAPEUTIC TABLET PO SCH (08:27)
[2017-07-29] MEDS ORDERED: DiphenhydrAMINE HCL 50 MG/ML VIAL IM ONE (15:00)
[2017-07-29] MEDS ORDERED: HALOPERIDOL LACTATE 5 MG/ML VIAL IM ONE (15:00)
[2017-07-29 16:00] VITALS: BP 120/67
[2017-07-29] MEDS: QUEtiapine FUMARATE 200 MG TABLET PO SCH (20:30)
[2017-07-30] MEDS: ZOLPIDEM TARTRATE 10 MG TABLET PO PRN (00:48)
[2017-07-30] MEDS: ACETAMINOPHEN 325 MG TABLET PO PRN ×2 (01:12→09:13)
[2017-07-30] MEDS: LORazepam 2 MG TABLET PO PRN ×3 (02:16→13:56)
[2017-07-30] MEDS: QUEtiapine FUMARATE 100 MG TABLET PO PRN ×3 (02:16→13:57)
[2017-07-30] MEDS: HydrOXYzine PAMOATE 50 MG CAPSULE PO PRN (03:28)
[2017-07-30] MEDS: FOLIC ACID 1 MG TABLET PO SCH (08:08)
[2017-07-30] MEDS: THIAMINE HCL 100 MG TABLET PO SCH ×2 (08:08→16:03)
[2017-07-30] MEDS: MULTIVITAMINS WITH MINERALS, THERAPEUTIC TABLET PO SCH (08:08)
[2017-07-30 08:13] VITALS: BP 112/77
[2017-07-30 09:14] VITALS: BP 112/77
[2017-07-30 10:15] VITALS: BP 124/79
[2017-07-30 16:40] VITALS: BP 114/79
[2017-07-30] MEDS: QUEtiapine FUMARATE 200 MG TABLET PO SCH (20:26)
[2017-07-31 02:15] VITALS: BP 122/78
[2017-07-31] MEDS: ZOLPIDEM TARTRATE 10 MG TABLET PO PRN ×2 (02:20→22:20)
[2017-07-31] MEDS: LORazepam 2 MG TABLET PO PRN ×3 (02:20→18:17)
[2017-07-31] MEDS: QUEtiapine FUMARATE 100 MG TABLET PO PRN ×2 (04:39→09:58)
[2017-07-31] MEDS: HydrOXYzine PAMOATE 50 MG CAPSULE PO PRN ×2 (04:39→09:58)
[2017-07-31 08:08] VITALS: BP 129/95
[2017-07-31] MEDS: FOLIC ACID 1 MG TABLET PO SCH (08:12)
[2017-07-31] MEDS: THIAMINE HCL 100 MG TABLET PO SCH ×2 (08:12→16:38)
[2017-07-31] MEDS: MULTIVITAMINS WITH MINERALS, THERAPEUTIC TABLET PO SCH (08:12)
[2017-07-31] MEDS: CITALOPRAM HYDROBROMIDE 20 MG TABLET PO SCH (08:13)
[2017-07-31 18:36] VITALS: BP 121/78
[2017-07-31] MEDS: QUEtiapine FUMARATE 200 MG TABLET PO SCH (20:05)
[2017-08-01] MEDS: LORazepam 2 MG TABLET PO PRN ×2 (00:49→16:12)
[2017-08-01] MEDS: QUEtiapine FUMARATE 100 MG TABLET PO PRN ×2 (00:49→16:12)
[2017-08-01 04:56] VITALS: BP 128/82
[2017-08-01] MEDS: HydrOXYzine PAMOATE 50 MG CAPSULE PO PRN (04:56)
[2017-08-01] MEDS: ACETAMINOPHEN 325 MG TABLET PO PRN ×2 (04:56→08:31)
[2017-08-01] MEDS: MULTIVITAMINS WITH MINERALS, THERAPEUTIC TABLET PO SCH (08:15)
[2017-08-01] MEDS: CITALOPRAM HYDROBROMIDE 20 MG TABLET PO SCH (08:15)
[2017-08-01] MEDS: THIAMINE HCL 100 MG TABLET PO SCH ×2 (08:15→16:12)
[2017-08-01] MEDS: FOLIC ACID 1 MG TABLET PO SCH (08:15)
[2017-08-01 09:23] VITALS: BP 126/76
[2017-08-01 16:54] VITALS: BP 140/78
[2017-08-01] MEDS: QUEtiapine FUMARATE 200 MG TABLET PO SCH (21:40)
[2017-08-01] MEDS: ZOLPIDEM TARTRATE 10 MG TABLET PO PRN (22:41)
[2017-08-02] MEDS: LORazepam 2 MG TABLET PO PRN ×2 (04:54→16:08)
[2017-08-02 04:56] VITALS: BP 118/70
[2017-08-02] MEDS: ACETAMINOPHEN 325 MG TABLET PO PRN (04:56)
[2017-08-02 08:37] VITALS: BP 114/78
[2017-08-02] MEDS: CITALOPRAM HYDROBROMIDE 20 MG TABLET PO SCH (09:00)
[2017-08-02] MEDS: MULTIVITAMINS WITH MINERALS, THERAPEUTIC TABLET PO SCH (09:00)
[2017-08-02] MEDS: FOLIC ACID 1 MG TABLET PO SCH (09:00)
[2017-08-02] MEDS: THIAMINE HCL 100 MG TABLET PO SCH ×2 (09:00→16:08)
[2017-08-02 10:28] VITALS: BP 111/64
[2017-08-02 16:00] VITALS: BP 138/82
[2017-08-02] MEDS: QUEtiapine FUMARATE 100 MG TABLET PO PRN (16:08)
[2017-08-02] MEDS: QUEtiapine FUMARATE 200 MG TABLET PO SCH (20:55)
[2017-08-02] MEDS: DIVALPROEX SODIUM 500 MG ER TABLET PO SCH (20:57)
[2017-08-02] MEDS: ZOLPIDEM TARTRATE 10 MG TABLET PO PRN (21:56)
[2017-08-03] MEDS: CITALOPRAM HYDROBROMIDE 20 MG TABLET PO SCH (07:58)
[2017-08-03] MEDS: MULTIVITAMINS WITH MINERALS, THERAPEUTIC TABLET PO SCH (07:58)
[2017-08-03] MEDS: FOLIC ACID 1 MG TABLET PO SCH (07:58)
[2017-08-03] MEDS: THIAMINE HCL 100 MG TABLET PO SCH ×2 (07:58→20:11)
[2017-08-03 08:00] VITALS: BP 136/76
[2017-08-03 09:09] VITALS: BP 136/76
[2017-08-03] MEDS ORDERED: DIVA500T52 PO (12:08)
[2017-08-03] MEDS ORDERED: CITA20TA17 PO (12:08)
[2017-08-03] MEDS ORDERED: QUET200T29 PO (12:08)
[2017-08-03] MEDS: DIVALPROEX SODIUM 500 MG ER TABLET PO SCH (20:23)
[2017-08-03] MEDS: QUEtiapine FUMARATE 200 MG TABLET PO SCH (20:23)
[2017-08-03 21:34] VITALS: BP 110/60
[2017-08-04] MEDS ORDERED: FOLI1 PO (08:17)
[2017-08-04] MEDS ORDERED: NALT50TA6 PO (08:20)
[2017-08-04 08:24] VITALS: BP 125/76
[2017-08-04] MEDS: THIAMINE HCL 100 MG TABLET PO SCH (08:30)
[2017-08-04] MEDS: CITALOPRAM HYDROBROMIDE 20 MG TABLET PO SCH (08:30)
[2017-08-04] MEDS: MULTIVITAMINS WITH MINERALS, THERAPEUTIC TABLET PO SCH (08:30)
[2017-08-04] MEDS: FOLIC ACID 1 MG TABLET PO SCH (08:30)
[2017-08-04] MEDS ORDERED: NALTREXONE HCL 50 MG TABLET PO SCH (09:00)
== END 2017-08-04 10:30 | disposition home or self-care (01) | DRG 750 ==
LOC: EMS 09:34 → 3EC 12:03 → B3A 12:03
PROVIDERS: ADMIT Psychiatry & Neurology Psychiatry; ATTEND Psychiatry & Neurology Psychiatry
DX: F25.0 Schizoaffective disorder, bipolar type (principal); E46 Unspecified protein-calorie malnutrition; K74.60 Unspecified cirrhosis of liver; Z91.19 Patient's noncompliance with other medical treatment and regimen; Z68.41 Body mass index [BMI] 40.0-44.9, adult; I10 Essential (primary) hypertension
CPT/HCPCS: 93005; 99285; G0480; J1200; J1630; J2060

== ENCOUNTER 2018-01-17 01:32 | Inpatient (IN) | payer SELFPAY ==
[~2018-01-17] VITALS: Ht 182.9 cm; Wt 113.4 kg
[~2018-01-17 01:32] MED LIST changes: -ARIP400S3 IM; +CITA20TA17 PO; +DIVA500T52 PO; +FOLI1 PO; +NALT50TA6 PO; +QUET200T29 PO
[2018-01-17 03:38] LABS: BASOPHILS % (AUTO) 0.6 % (0.0-2.0); EOSINOPHILS % (AUTO) 3.4 % (1.0-6.0); HEMATOCRIT 43.9 % (41-53); HEMOGLOBIN 15.1 g/dL (13.5-17.5); LYMPHOCYTES # (AUTO) 2.5 K/uL (1.0-4.8); LYMPHOCYTES % (AUTO) 28.9 % (22.0-44.0); MEAN CORPUSCULAR HGB CONC 34.4 G/dL (31.0-37.0); MEAN CORPUSCULAR VOLUME 87 fL (80-100); MONOCYTES # (AUTO) 0.6 K/uL (0.1-1.0); MONOCYTES % (AUTO) 7.4 % (2.0-9.0); NEUTROPHILS # (AUTO) 5.2 K/uL (1.8-7.7); NEUTROPHILS % (AUTO) 59.7 % (40.0-70.0); PLATELET COUNT (AUTO) 198 K/uL (150-450); RED BLOOD CELL COUNT(AUTO) 5.03 MIL/uL (4.50-5.90); RED CELL DISTRIBUTION WIDTH 14.2 % (11.5-14.5)
[2018-01-17 04:02] LABS: ANION GAP 2 mmol/L (8-16); CALCIUM, TOTAL 8.7 mg/dL (8.8-10.5); CARBON DIOXIDE 35 mmol/L (22-29); CHLORIDE 103 mmol/L (98-107); CREATININE 0.88 mg/dL (0.60-1.30); GLOMERULAR FILTR. RATE CALC > 60 mL/min (>60); GLUCOSE,RANDOM 89 mg/dL (70-110); POTASSIUM 4.1 mmol/L (3.5-5.1); SODIUM SERUM 140 mmol/L (136-145); UREA NITROGEN, BLOOD 24 mg/dL (7-18)
[2018-01-17 04:05] LABS: ALANINE AMINOTRANSFERASE 67 U/L (12-78); ALBUMIN 3.2 g/dL (3.4-5.0); ALKALINE PHOSPHATASE 244 U/L (46-116); ASPARTATE AMINOTRANSFERASE 50 U/L (15-37); BILIRUBIN,TOTAL 0.3 mg/dL (0.1-1.0); TOTAL PROTEIN, SERUM 7.1 g/dL (6.4-8.2)
[2018-01-17] MEDS ORDERED: QUEtiapine FUMARATE 25 MG TABLET PO ONE (05:30)
[2018-01-17] MEDS ORDERED: ZOLPIDEM TARTRATE 10 MG TABLET PO PRN (06:30)
[2018-01-17] MEDS ORDERED: LORazepam 2 MG/ML VIAL IM ONE (07:15)
[2018-01-17] MEDS ORDERED: HALOPERIDOL LACTATE 5 MG/ML VIAL IM ONE (07:15)
[2018-01-17] MEDS ORDERED: DiphenhydrAMINE HCL 50 MG/ML VIAL IM ONE (07:15)
[2018-01-17 07:35] LABS: CHOL/HDL RATIO 3.3 (4.2-7.3); CHOLESTEROL 154 mg/dL (131-200); HDL CHOLESTEROL 47 mg/dL (40-60); LDL CHOL (CALC.) 90 mg/dL (0-130); THYROID STIMULATING HORMONE 1.43 uIU/mL (0.36-3.74); TRIGLYCERIDES 84 mg/dL (15-150)
[2018-01-17 08:46] LABS: AMPHET/METH SCREEN,URINE POSITIVE (NEGATIVE); BARBITURATE SCREEN, URINE NEGATIVE (NEGATIVE); BENZODIAZEPINES SCREEN,URINE NEGATIVE (NEGATIVE); CANNABINOID SCREEN,URINE POSITIVE (NEGATIVE); COCAINE SCREEN,URINE NEGATIVE (NEGATIVE); METHADONE SCREEN, URINE NEGATIVE (NEGATIVE); OPIATE SCREEN,URINE NEGATIVE (NEGATIVE)
[2018-01-17 08:47] LABS: PHENCYCLIDINE SCREEN,URINE NEGATIVE (NEGATIVE)
[2018-01-17 09:10] LABS: APPEARANCE,URINE CLEAR (CLEAR); BILIRUBIN,URINE NEGATIVE (NEGATIVE); GLUCOSE, URINE (UA) NEGATIVE (NEGATIVE); KETONES,URINE NEGATIVE (NEGATIVE); LEUKOCYTE ESTERASE ,URINE NEGATIVE (NEGATIVE); NITRATE,URINE NEGATIVE (NEGATIVE); OCCULT BLOOD,URINE NEGATIVE (NEGATIVE); PROTEIN,URINE NEGATIVE (NEGATIVE)
[2018-01-17 12:39] VITALS: BP 113/64
[2018-01-17] MEDS ORDERED: GuaiFENesin/D-METHORPHAN [SUGAR-FREE] 200-20MG/10 ML SYRUP UDCUP PO PRN (15:00)
[2018-01-17] MEDS ORDERED: ARIPiprazole ER SUSPENSION 400 MG PRE-FILLED DUAL CHAMBER SYRINGE IM ONE (15:00)
[2018-01-17] MEDS ORDERED: MAGNESIUM HYDROXIDE SUSPENSION 30 ML UDCUP PO PRN (15:00)
[2018-01-17] MEDS ORDERED: TUBERCULIN, PURIFIED PROTEIN DERIVATIVE 5 TU/0.1 ML SYG ID ONE (15:00)
[2018-01-17] MEDS ORDERED: PROMETHAZINE HCL 25 MG TABLET PO PRN (15:00)
[2018-01-17] MEDS ORDERED: MAG HYDROX/AL HYDROX/SIMETH ES 30 ML SUSPENSION UDCUP PO PRN ×2 (15:00→15:30)
[2018-01-17] MEDS ORDERED: QUEtiapine FUMARATE 100 MG TABLET PO PRN (15:00)
[2018-01-17] MEDS ORDERED: ACETAMINOPHEN 325 MG TABLET PO PRN (15:00)
[2018-01-17] MEDS ORDERED: HydrOXYzine PAMOATE 50 MG CAPSULE PO PRN ×2 (15:00→15:30)
[2018-01-17] MEDS ORDERED: CloNIDine HCL 0.1 MG TABLET PO PRN (15:30)
[2018-01-17] MEDS ORDERED: PROMETHAZINE HCL 25 MG/ML VIAL IM PRN (15:30)
[2018-01-17] MEDS ORDERED: INFLUENZA VIRUS VACCINE QVS 2017-18 (3YR+)/PF 60 MCG/0.5 ML SYRINGE IM ONE (15:30)
[2018-01-17] MEDS ORDERED: IBUPROFEN 600 MG TABLET PO PRN (15:30)
[2018-01-17 16:00] VITALS: BP 116/67
[2018-01-17 17:00] VITALS: BP 144/88
[2018-01-17] MEDS: THIAMINE HCL 100 MG TABLET PO SCH (17:45)
[2018-01-17] MEDS: ACAMPROSATE CALCIUM 333 MG DR TABLET PO SCH (17:45)
[2018-01-17] MEDS: CloNIDine HCL 0.1 MG TABLET PO SCH ×2 (17:45→21:26)
[2018-01-17] MEDS: LORazepam 2 MG TABLET PO PRN (17:46)
[2018-01-17] MEDS: QUEtiapine FUMARATE 100 MG TABLET PO PRN (17:46)
[2018-01-17 18:00] VITALS: BP 126/68
[2018-01-17 19:00] VITALS: BP 120/66
[2018-01-17 20:00] VITALS: BP 108/64
[2018-01-17] MEDS: DIVALPROEX SODIUM 500 MG ER TABLET PO SCH (21:26)
[2018-01-17] MEDS: ARIPiprazole 15 MG TABLET PO SCH (21:26)
[2018-01-18] VITALS (7 sets, daily range): BP systolic 112–123; BP diastolic 65–88
[2018-01-18] MEDS: CloNIDine HCL 0.1 MG TABLET PO SCH ×4 (05:57→21:04)
[2018-01-18 08:36] LABS: BASOPHILS % (AUTO) 0.3 % (0.0-2.0); EOSINOPHILS % (AUTO) 2.4 % (1.0-6.0); HEMATOCRIT 45.6 % (41-53); HEMOGLOBIN 15.3 g/dL (13.5-17.5); LYMPHOCYTES # (AUTO) 1.6 K/uL (1.0-4.8); LYMPHOCYTES % (AUTO) 21.3 % (22.0-44.0); MEAN CORPUSCULAR HEMOGLOBIN 29.6 pg (26.0-34.0); MEAN CORPUSCULAR HGB CONC 33.5 G/dL (31.0-37.0); MEAN CORPUSCULAR VOLUME 88 fL (80-100); MONOCYTES # (AUTO) 0.4 K/uL (0.1-1.0); MONOCYTES % (AUTO) 5.9 % (2.0-9.0); NEUTROPHILS # (AUTO) 5.3 K/uL (1.8-7.7); NEUTROPHILS % (AUTO) 70.1 % (40.0-70.0); PLATELET COUNT (AUTO) 147 K/uL (150-450); RED BLOOD CELL COUNT(AUTO) 5.17 MIL/uL (4.50-5.90); RED CELL DISTRIBUTION WIDTH 14.1 % (11.5-14.5)
[2018-01-18 08:47] LABS: HEMOGLOBIN A1C 5.5 % (4.5-6.2)
[2018-01-18] MEDS ORDERED: NALTREXONE HCL 50 MG TABLET PO SCH (09:00)
[2018-01-18 09:08] LABS: ALANINE AMINOTRANSFERASE 69 U/L (12-78); ALBUMIN 3.1 g/dL (3.4-5.0); ALKALINE PHOSPHATASE 218 U/L (46-116); ANION GAP 5 mmol/L (8-16); ASPARTATE AMINOTRANSFERASE 51 U/L (15-37); BILIRUBIN,TOTAL 0.4 mg/dL (0.1-1.0); CALCIUM, TOTAL 8.8 mg/dL (8.8-10.5); CARBON DIOXIDE 31 mmol/L (22-29); CHLORIDE 105 mmol/L (98-107); CHOL/HDL RATIO 3.5 (4.2-7.3); CHOLESTEROL 156 mg/dL (131-200); CREATININE 0.84 mg/dL (0.60-1.30); FREE T4 (FREE THYROXINE) 1.26 ng/dL (0.76-1.46); GLOMERULAR FILTR. RATE CALC > 60 mL/min (>60); GLUCOSE,RANDOM 108 mg/dL (70-110); HDL CHOLESTEROL 44 mg/dL (40-60); LDL CHOL (CALC.) 93 mg/dL (0-130); POTASSIUM 4.2 mmol/L (3.5-5.1); SODIUM SERUM 141 mmol/L (136-145); THYROID STIMULATING HORMONE 0.91 uIU/mL (0.36-3.74); TOTAL PROTEIN, SERUM 7.1 g/dL (6.4-8.2); TRIGLYCERIDES 93 mg/dL (15-150); UREA NITROGEN, BLOOD 13 mg/dL (7-18)
[2018-01-18] MEDS: THIAMINE HCL 100 MG TABLET PO SCH ×2 (09:38→16:29)
[2018-01-18] MEDS: MULTIVITAMINS WITH MINERALS, THERAPEUTIC TABLET PO SCH (09:38)
[2018-01-18] MEDS: ACAMPROSATE CALCIUM 333 MG DR TABLET PO SCH ×3 (09:39→16:29)
[2018-01-18] MEDS: FOLIC ACID 1 MG TABLET PO SCH (09:39)
[2018-01-18] MEDS ORDERED: HALOPERIDOL LACTATE 5 MG/ML VIAL IM ONE (15:30)
[2018-01-18] MEDS ORDERED: LORazepam 2 MG/ML VIAL IM ONE (15:30)
[2018-01-18] MEDS ORDERED: DiphenhydrAMINE HCL 50 MG/ML VIAL IM ONE (15:30)
[2018-01-18] MEDS: LORazepam 2 MG TABLET PO PRN (17:02)
[2018-01-18] MEDS: ARIPiprazole 15 MG TABLET PO SCH (20:17)
[2018-01-18] MEDS: DIVALPROEX SODIUM 500 MG ER TABLET PO SCH (20:17)
[2018-01-19] VITALS: BP 110/68
[2018-01-19 04:00] VITALS: BP 114/72
[2018-01-19] MEDS: CloNIDine HCL 0.1 MG TABLET PO SCH ×4 (06:25→21:01)
[2018-01-19 08:17] VITALS: BP 120/72
[2018-01-19] MEDS: MULTIVITAMINS WITH MINERALS, THERAPEUTIC TABLET PO SCH (09:23)
[2018-01-19] MEDS: THIAMINE HCL 100 MG TABLET PO SCH ×2 (09:23→17:09)
[2018-01-19] MEDS: ACAMPROSATE CALCIUM 333 MG DR TABLET PO SCH ×3 (09:24→17:08)
[2018-01-19] MEDS: FOLIC ACID 1 MG TABLET PO SCH (09:24)
[2018-01-19 09:34] VITALS: BP 120/72
[2018-01-19] MEDS: LORazepam 2 MG TABLET PO PRN ×2 (13:57→18:30)
[2018-01-19 13:58] VITALS: BP 120/70
[2018-01-19] MEDS ORDERED: ACAM333T7 PO (14:17)
[2018-01-19] MEDS ORDERED: DIVA500T52 PO (14:17)
[2018-01-19] MEDS ORDERED: ARIP400S3 IM (14:17)
[2018-01-19] MEDS ORDERED: ARIP15TA2 PO (14:18)
[2018-01-19 16:00] VITALS: BP 137/73
[2018-01-19] MEDS: QUEtiapine FUMARATE 100 MG TABLET PO PRN (17:09)
[2018-01-19] MEDS: NICOTINE 21 MG/24 HOUR PATCH TD SCH (17:20)
[2018-01-19] MEDS: DIVALPROEX SODIUM 500 MG ER TABLET PO SCH (20:59)
[2018-01-19] MEDS: ARIPiprazole 15 MG TABLET PO SCH (20:59)
[2018-01-20 06:49] VITALS: BP 110/70
[2018-01-20 06:59] VITALS: BP 110/70
[2018-01-20] MEDS: CloNIDine HCL 0.1 MG TABLET PO SCH (07:01)
[2018-01-20] MEDS: FOLIC ACID 1 MG TABLET PO SCH (08:03)
[2018-01-20] MEDS: NICOTINE 21 MG/24 HOUR PATCH TD SCH (08:03)
[2018-01-20] MEDS: THIAMINE HCL 100 MG TABLET PO SCH (08:03)
[2018-01-20] MEDS: MULTIVITAMINS WITH MINERALS, THERAPEUTIC TABLET PO SCH (08:04)
[2018-01-20] MEDS: ACAMPROSATE CALCIUM 333 MG DR TABLET PO SCH (08:04)
[2018-01-20] MEDS ORDERED: DIVA500T52 PO ×2 (09:00→09:04)
[2018-01-20] MEDS ORDERED: ARIP15TA2 PO ×2 (09:00→09:04)
[2018-01-20] MEDS ORDERED: ACAM333T7 PO ×2 (09:00→09:04)
[2018-02-14] MEDS ORDERED: ARIPiprazole ER SUSPENSION 400 MG PRE-FILLED DUAL CHAMBER SYRINGE IM SCH (09:00)
== END 2018-01-20 10:15 | disposition home or self-care (01) | DRG 885 ==
LOC: EMS 01:33 → B3A 10:32 → B2S 01-20 08:25
PROVIDERS: ADMIT Psychiatry & Neurology Psychiatry; ATTEND Psychiatry & Neurology Psychiatry
DX: F25.9 Schizoaffective disorder, unspecified (principal); R74.0 Nonspecific elevation of levels of transaminase and lactic acid dehydrogenase [LDH]; E66.9 Obesity, unspecified; Z91.19 Patient's noncompliance with other medical treatment and regimen; F12.90 Cannabis use, unspecified, uncomplicated; F15.10 Other stimulant abuse, uncomplicated; F17.200 Nicotine dependence, unspecified, uncomplicated; Z28.29 Immunization not carried out because of patient decision for other reason; Z56.0 Unemployment, unspecified; G47.00 Insomnia, unspecified; F41.9 Anxiety disorder, unspecified; I10 Essential (primary) hypertension; F11.90 Opioid use, unspecified, uncomplicated; Z71.6 Tobacco abuse counseling; Z71.51 Drug abuse counseling and surveillance of drug abuser
CPT/HCPCS: 83036; 84439; 84443; 86592; 90471; 96372; 99285; G0480; J0401; J1200; J1630; J2060

== ENCOUNTER 2018-10-24 22:05 | Emergency (ER) | payer MEDICAID, OTHER ==
[~2018-10-24] VITALS: Ht 180.3 cm; Wt 122.7 kg
[~2018-10-24 22:05] MED LIST changes: +ARIP882S IM; -CITA10TA68 PO; -CITA20TA17 PO; -DIVA500T52 PO; +FLUO10TA3 PO; -FOLI1 PO; +HALO5TAB2 IM; +LORA2TAB80 PO; -NALT50TA6 PO; -QUET200T29 PO; -QUET400T12 PO; +VALP250S23 PO; +ZOLP5TAB2 PO
[2018-10-24] MEDS ORDERED: LORA2TAB2 PO (22:24)
[2018-10-24] MEDS ORDERED: HALO5TAB2 PO (22:24)
[2018-10-24] MEDS ORDERED: BACL10TA PO (22:24)
[2018-10-24 23:32] VITALS: BP 131/87
== END 2018-10-25 00:15 | disposition home or self-care (01) ==
LOC: EMS 22:07
DX: S62.323A Displaced fracture of shaft of third metacarpal bone, left hand, initial encounter for closed fracture (principal); S62.325A Displaced fracture of shaft of fourth metacarpal bone, left hand, initial encounter for closed fracture; I10 Essential (primary) hypertension; F20.9 Schizophrenia, unspecified; F17.210 Nicotine dependence, cigarettes, uncomplicated; W19.XXXA Unspecified fall, initial encounter; Y93.89 Activity, other specified; Y92.89 Other specified places as the place of occurrence of the external cause; Y99.8 Other external cause status

== ENCOUNTER 2018-11-18 13:49 | Inpatient (IN) | payer MEDICAID, OTHER ==
[~2018-11-18] VITALS: Ht 180.3 cm; Wt 124.7 kg
[~2018-11-18 13:49] MED LIST changes: +BACL10TA PO; +HALO5TAB2 PO; +LORA2TAB2 PO
[2018-11-18] MEDS ORDERED: DiphenhydrAMINE HCL 50 MG/ML VIAL IM ONE (18:00)
[2018-11-18] MEDS ORDERED: HALOPERIDOL LACTATE 5 MG/ML VIAL IM ONE (18:00)
[2018-11-18] MEDS ORDERED: LORazepam 2 MG/ML VIAL IM ONE (18:00)
[2018-11-18] MEDS ORDERED: IBUPROFEN 400 MG TABLET PO PRN ×2 (18:15→21:15)
[2018-11-18] MEDS ORDERED: ACETAMINOPHEN 325 MG TABLET PO PRN ×2 (18:15→21:15)
[2018-11-18] MEDS ORDERED: ZOLPIDEM TARTRATE 10 MG TABLET PO PRN (18:15)
[2018-11-18 18:16] LABS: BASOPHILS % (AUTO) 0.7 % (0.0-2.0); EOSINOPHILS % (AUTO) 0.3 % (1.0-6.0); HEMATOCRIT 44.7 % (41-53); HEMOGLOBIN 15.5 g/dL (13.5-17.5); LYMPHOCYTES # (AUTO) 1.6 K/uL (1.0-4.8); LYMPHOCYTES % (AUTO) 15.6 % (22.0-44.0); MEAN CORPUSCULAR HEMOGLOBIN 31.1 pg (26.0-34.0); MEAN CORPUSCULAR HGB CONC 34.6 G/dL (31.0-37.0); MEAN CORPUSCULAR VOLUME 90 fL (80-100); MONOCYTES % (AUTO) 10.3 % (2.0-9.0); NEUTROPHILS # (AUTO) 7.4 K/uL (1.8-7.7); NEUTROPHILS % (AUTO) 73.1 % (40.0-70.0); PLATELET COUNT (AUTO) 151 K/uL (150-450); RED BLOOD CELL COUNT(AUTO) 4.97 MIL/uL (4.50-5.90)
[2018-11-18 18:29] LABS: ANION GAP 9 mmol/L (8-16); CALCIUM, TOTAL 8.6 mg/dL (8.8-10.5); CARBON DIOXIDE 29 mmol/L (22-29); CHLORIDE 103 mmol/L (98-107); CREATININE 1.02 mg/dL (0.60-1.30); GLOMERULAR FILTR. RATE CALC > 60 mL/min (>60); GLUCOSE,RANDOM 103 mg/dL (70-110); POTASSIUM 3.7 mmol/L (3.5-5.1); SODIUM SERUM 141 mmol/L (136-145); UREA NITROGEN, BLOOD 17 mg/dL (7-18)
[2018-11-18 18:35] LABS: ALANINE AMINOTRANSFERASE 65 U/L (12-78); ALBUMIN 3.4 g/dL (3.4-5.0); ALKALINE PHOSPHATASE 126 U/L (46-116); ASPARTATE AMINOTRANSFERASE 74 U/L (15-37); BILIRUBIN,TOTAL 0.7 mg/dL (0.1-1.0); TOTAL PROTEIN, SERUM 7.2 g/dL (6.4-8.2)
[2018-11-18 18:49] LABS: VALPROIC ACID 5 mcg/mL (50-100)
[2018-11-18] MEDS ORDERED: PERTUSS(ACELL),DIPH,TET VAC/PF 0.5 ML VIAL IM ONE (19:00)
[2018-11-18 21:00] VITALS: BP 143/73
[2018-11-18] MEDS ORDERED: ONDANSETRON HCL 4 MG TABLET PO PRN (21:15)
[2018-11-18] MEDS ORDERED: PETROLATUM,WHITE 71 GM JELLY TP PRN (21:15)
[2018-11-18] MEDS ORDERED: CloNIDine HCL 0.1 MG TABLET PO PRN (21:15)
[2018-11-18] MEDS ORDERED: MAG HYDROX/AL HYDROX/SIMETH ES 30 ML SUSPENSION UDCUP PO PRN (21:15)
[2018-11-18] MEDS ORDERED: ALBUTEROL SULFATE HFA 90 MCG/PUFF 8 GM INHALER IH PRN (21:15)
[2018-11-18] MEDS ORDERED: GuaiFENesin/D-METHORPHAN [SUGAR-FREE] 200-20MG/10 ML SYRUP UDCUP PO PRN (21:15)
[2018-11-18] MEDS ORDERED: MAGNESIUM HYDROXIDE SUSPENSION 30 ML UDCUP PO PRN (21:15)
[2018-11-18] MEDS ORDERED: LOPERAMIDE HCL 2 MG CAPSULE PO PRN (21:15)
[2018-11-18] MEDS ORDERED: DOCUSATE SODIUM 100 MG CAPSULE PO PRN (21:15)
[2018-11-18] MEDS ORDERED: NICOTINE 14 MG/24 HOUR PATCH TD PRN (21:15)
[2018-11-18 21:21] VITALS: BP 143/73
[2018-11-18] MEDS ORDERED: -PHARMACY VACCINE NOTE- MISC ONE (21:30)
[2018-11-18] MEDS ORDERED: PNEUMOCOCCAL VACCINE POLYVALENT 0.5 ML VIAL [PPSV23] IM ONE (21:30)
[2018-11-19 07:16] VITALS: BP 114/68
[2018-11-19 08:03] VITALS: BP 121/68
[2018-11-19 08:40] LABS: BASOPHILS % (AUTO) 0.3 % (0.0-2.0); EOSINOPHILS % (AUTO) 3.9 % (1.0-6.0); HEMATOCRIT 42.8 % (41-53); HEMOGLOBIN 14.5 g/dL (13.5-17.5); LYMPHOCYTES # (AUTO) 2.3 K/uL (1.0-4.8); LYMPHOCYTES % (AUTO) 41.8 % (22.0-44.0); MEAN CORPUSCULAR HEMOGLOBIN 31.2 pg (26.0-34.0); MEAN CORPUSCULAR HGB CONC 33.9 G/dL (31.0-37.0); MEAN CORPUSCULAR VOLUME 92 fL (80-100); MONOCYTES # (AUTO) 0.5 K/uL (0.1-1.0); MONOCYTES % (AUTO) 9.7 % (2.0-9.0); NEUTROPHILS # (AUTO) 2.5 K/uL (1.8-7.7); NEUTROPHILS % (AUTO) 44.3 % (40.0-70.0); PLATELET COUNT (AUTO) 94 K/uL (150-450); RED BLOOD CELL COUNT(AUTO) 4.66 MIL/uL (4.50-5.90); RED CELL DISTRIBUTION WIDTH 14.6 % (11.5-14.5)
[2018-11-19 08:46] LABS: HEMOGLOBIN A1C 5.2 % (4.5-6.2)
[2018-11-19 09:09] LABS: ALANINE AMINOTRANSFERASE 74 U/L (12-78); ALKALINE PHOSPHATASE 108 U/L (46-116); ANION GAP 6 mmol/L (8-16); ASPARTATE AMINOTRANSFERASE 93 U/L (15-37); BILIRUBIN,TOTAL 0.7 mg/dL (0.1-1.0); CALCIUM, TOTAL 8.4 mg/dL (8.8-10.5); CARBON DIOXIDE 30 mmol/L (22-29); CHLORIDE 107 mmol/L (98-107); CHOL/HDL RATIO 2.7 (4.2-7.3); CHOLESTEROL 128 mg/dL (131-200); CREATININE 0.89 mg/dL (0.60-1.30); GLOMERULAR FILTR. RATE CALC > 60 mL/min (>60); GLUCOSE,RANDOM 80 mg/dL (70-110); HDL CHOLESTEROL 47 mg/dL (40-60); LDL CHOL (CALC.) 72 mg/dL (0-130); POTASSIUM 4.2 mmol/L (3.5-5.1); SODIUM SERUM 143 mmol/L (136-145); THYROID STIMULATING HORMONE 3.03 uIU/mL (0.36-3.74); TOTAL PROTEIN, SERUM 6.4 g/dL (6.4-8.2); TRIGLYCERIDES 43 mg/dL (15-150); UREA NITROGEN, BLOOD 16 mg/dL (7-18)
[2018-11-19] MEDS: LORazepam 2 MG TABLET PO PRN ×2 (10:17→16:31)
[2018-11-19] MEDS: HALOPERIDOL 5 MG TABLET PO PRN ×2 (10:17→16:31)
[2018-11-19] MEDS: FLUoxetine HCL 20 MG CAPSULE PO SCH (12:54)
[2018-11-19] MEDS: ARIPiprazole 15 MG TABLET PO SCH (12:54)
[2018-11-19] MEDS: VALPROIC ACID 250 MG/5 ML SYRUP UDCUP PO SCH ×2 (12:54→20:25)
[2018-11-19 16:18] VITALS: BP 124/76
[2018-11-20 03:56] VITALS: BP 117/74
[2018-11-20] MEDS: HALOPERIDOL 5 MG TABLET PO PRN (08:17)
[2018-11-20] MEDS: FLUoxetine HCL 20 MG CAPSULE PO SCH (08:17)
[2018-11-20] MEDS: VALPROIC ACID 250 MG/5 ML SYRUP UDCUP PO SCH ×2 (08:17→21:09)
[2018-11-20] MEDS: ARIPiprazole 15 MG TABLET PO SCH (08:17)
[2018-11-20] MEDS: LORazepam 2 MG TABLET PO PRN (08:17)
[2018-11-20 08:36] VITALS: BP 110/51
[2018-11-20 16:00] VITALS: BP 106/63
[2018-11-21 06:45] VITALS: BP 121/81
[2018-11-21] MEDS: VALPROIC ACID 250 MG/5 ML SYRUP UDCUP PO SCH ×2 (08:30→20:46)
[2018-11-21] MEDS: FLUoxetine HCL 20 MG CAPSULE PO SCH (08:30)
[2018-11-21] MEDS: ARIPiprazole 15 MG TABLET PO SCH (08:30)
[2018-11-21 13:37] VITALS: BP 100/60
[2018-11-21 17:25] VITALS: BP 121/70
[2018-11-22 06:35] VITALS: BP 123/76
[2018-11-22] MEDS: FLUoxetine HCL 20 MG CAPSULE PO SCH (08:04)
[2018-11-22] MEDS: LORazepam 2 MG TABLET PO PRN ×2 (08:04→16:34)
[2018-11-22] MEDS: ARIPiprazole 15 MG TABLET PO SCH (08:04)
[2018-11-22] MEDS: VALPROIC ACID 250 MG/5 ML SYRUP UDCUP PO SCH ×2 (08:04→20:14)
[2018-11-22 08:07] VITALS: BP 112/63
[2018-11-22 16:00] VITALS: BP 135/69
[2018-11-22] MEDS: HALOPERIDOL 5 MG TABLET PO PRN (16:34)
[2018-11-23 06:35] VITALS: BP 122/72
[2018-11-23 08:03] VITALS: BP 108/60
[2018-11-23] MEDS: FLUoxetine HCL 20 MG CAPSULE PO SCH (08:35)
[2018-11-23] MEDS: LORazepam 2 MG TABLET PO PRN (08:35)
[2018-11-23] MEDS: VALPROIC ACID 250 MG/5 ML SYRUP UDCUP PO SCH (08:36)
[2018-11-23] MEDS: ARIPiprazole 15 MG TABLET PO SCH (08:36)
[2018-11-23] MEDS ORDERED: ARIP30TA PO (10:58)
== END 2018-11-23 16:15 | DRG 750 ==
LOC: EMS 13:50 → B2S 19:30 → B3A 20:57
PROVIDERS: ADMIT Psychiatry & Neurology Psychiatry; ATTEND Psychiatry & Neurology Psychiatry
DX: F20.9 Schizophrenia, unspecified (principal); D69.6 Thrombocytopenia, unspecified; R45.851 Suicidal ideations; F32.9 Major depressive disorder, single episode, unspecified; F41.9 Anxiety disorder, unspecified; F11.90 Opioid use, unspecified, uncomplicated; I12.9 Hypertensive chronic kidney disease with stage 1 through stage 4 chronic kidney disease, or unspecified chronic kidney disease; N18.9 Chronic kidney disease, unspecified; F17.210 Nicotine dependence, cigarettes, uncomplicated; S30.811A Abrasion of abdominal wall, initial encounter; X58.XXXA Exposure to other specified factors, initial encounter; Y93.89 Activity, other specified; Y92.89 Other specified places as the place of occurrence of the external cause; Y99.8 Other external cause status; S80.01XA Contusion of right knee, initial encounter
CPT/HCPCS: 83036; 84443; 87081; 90471; 90715; 90732; 96372; 99406; G0480; J1200; J1630; J2060

== ENCOUNTER 2019-01-13 19:08 | Emergency (ER) | payer MEDICAID, OTHER ==
[~2019-01-13] VITALS: Ht 180.3 cm; Wt 122.7 kg
[~2019-01-13 19:08] MED LIST changes: +ARIP30TA PO; -ARIP882S IM; -BACL10TA PO; -HALO5TAB2 IM; -HALO5TAB2 PO; -LORA2TAB2 PO; -LORA2TAB80 PO; -ZOLP5TAB2 PO
[2019-01-13] MEDS ORDERED: DULO20CA17 PO (22:14)
[2019-01-13] MEDS ORDERED: ZOLP5TAB2 PO (22:14)
[2019-01-13] MEDS ORDERED: IBUP-2070 PO (22:18)
[2019-01-13] MEDS ORDERED: LORA2TAB2 PO (22:18)
[2019-01-13 22:53] LABS: ANION GAP 5 mmol/L (8-16); CALCIUM, TOTAL 8.4 mg/dL (8.8-10.5); CARBON DIOXIDE 30 mmol/L (22-29); CHLORIDE 103 mmol/L (98-107); CREATININE 0.91 mg/dL (0.60-1.30); GLOMERULAR FILTR. RATE CALC > 60 mL/min (>60); GLUCOSE,RANDOM 99 mg/dL (70-110); POTASSIUM 4.4 mmol/L (3.5-5.1); SODIUM SERUM 138 mmol/L (136-145); UREA NITROGEN, BLOOD 23 mg/dL (7-18)
[2019-01-13 22:57] LABS: BASOPHILS % (AUTO) 0.4 % (0.0-2.0); EOSINOPHILS % (AUTO) 1.9 % (1.0-6.0); HEMATOCRIT 39.8 % (41-53); HEMOGLOBIN 13.8 g/dL (13.5-17.5); LYMPHOCYTES # (AUTO) 1.2 K/uL (1.0-4.8); LYMPHOCYTES % (AUTO) 15.8 % (22.0-44.0); MEAN CORPUSCULAR HEMOGLOBIN 31.2 pg (26.0-34.0); MEAN CORPUSCULAR HGB CONC 34.7 G/dL (31.0-37.0); MEAN CORPUSCULAR VOLUME 90 fL (80-100); MONOCYTES # (AUTO) 0.8 K/uL (0.1-1.0); MONOCYTES % (AUTO) 11.5 % (2.0-9.0); NEUTROPHILS # (AUTO) 5.2 K/uL (1.8-7.7); NEUTROPHILS % (AUTO) 70.4 % (40.0-70.0); PLATELET COUNT (AUTO) 187 K/uL (150-450); RED BLOOD CELL COUNT(AUTO) 4.42 MIL/uL (4.50-5.90); RED CELL DISTRIBUTION WIDTH 13.7 % (11.5-14.5)
[2019-01-13 23:00] LABS: ALANINE AMINOTRANSFERASE 70 U/L (12-78); ALBUMIN 2.6 g/dL (3.4-5.0); ALKALINE PHOSPHATASE 102 U/L (46-116); ASPARTATE AMINOTRANSFERASE 74 U/L (15-37); BILIRUBIN,TOTAL 0.8 mg/dL (0.1-1.0); TOTAL PROTEIN, SERUM 6.7 g/dL (6.4-8.2); VALPROIC ACID 61 mcg/mL (50-100)
[2019-01-14] MEDS ORDERED: FluPHENAZine HCL 2.5 MG/ML INJ IM ONE
[2019-01-14] MEDS ORDERED: DiphenhydrAMINE HCL 50 MG/ML VIAL IM ONE
[2019-01-14] MEDS ORDERED: LORazepam 2 MG/ML VIAL IM ONE
[2019-01-14 08:49] VITALS: BP 125/86
== END 2019-01-14 09:06 | disposition home or self-care (01) ==
LOC: EMS 19:09
DX: F31.9 Bipolar disorder, unspecified (principal); F20.9 Schizophrenia, unspecified; I10 Essential (primary) hypertension; F17.210 Nicotine dependence, cigarettes, uncomplicated; F11.90 Opioid use, unspecified, uncomplicated
CPT/HCPCS: 36415; 80053; 80164; 85025; 96372; 99285; 99406; G0480; J1200; J2060; J3490

== ENCOUNTER 2019-01-19 21:39 | Emergency (ER) | payer OTHER ==
[~2019-01-19] VITALS: Ht 180.3 cm; Wt 122.7 kg
[~2019-01-19 21:39] MED LIST changes: +DULO20CA17 PO; +IBUP-2070 PO; +LORA2TAB2 PO; +ZOLP5TAB2 PO
[2019-01-19 22:46] VITALS: BP 151/75
[2019-01-20] MEDS ORDERED: LORazepam 2 MG/ML VIAL ONE (00:04)
[2019-01-20] MEDS ORDERED: HALOPERIDOL LACTATE 5 MG/ML VIAL ONE (00:05)
[2019-01-20] MEDS ORDERED: HALOPERIDOL LACTATE 5 MG/ML VIAL IM ONE (00:15)
[2019-01-20] MEDS ORDERED: LORazepam 2 MG/ML VIAL IM ONE (00:15)
[2019-01-21] MEDS ORDERED: ZOLP10TA7 PO (12:37)
[2019-01-21] MEDS ORDERED: FLUO-191 PO (12:37)
[2019-01-21] MEDS ORDERED: ARIP15TA2 PO (12:37)
== END 2019-01-20 01:34 | disposition home or self-care (01) ==
LOC: EMS 21:40
DX: L29.9 Pruritus, unspecified (principal); R45.1 Restlessness and agitation; F31.9 Bipolar disorder, unspecified; I10 Essential (primary) hypertension; F20.9 Schizophrenia, unspecified; F17.210 Nicotine dependence, cigarettes, uncomplicated
CPT/HCPCS: 96372; 99283; J1630; J2060

== ENCOUNTER 2019-01-20 09:41 | Inpatient (IN) | payer MEDICAID, OTHER ==
[~2019-01-20] VITALS: Ht 180.3 cm; Wt 125.3 kg
[2019-01-20 11:21] LABS: BASOPHILS % (AUTO) 0.6 % (0.0-2.0); EOSINOPHILS % (AUTO) 2.8 % (1.0-6.0); HEMATOCRIT 40.8 % (41-53); LYMPHOCYTES # (AUTO) 1.5 K/uL (1.0-4.8); LYMPHOCYTES % (AUTO) 26.9 % (22.0-44.0); MEAN CORPUSCULAR HEMOGLOBIN 31.4 pg (26.0-34.0); MEAN CORPUSCULAR HGB CONC 34.2 G/dL (31.0-37.0); MEAN CORPUSCULAR VOLUME 92 fL (80-100); MONOCYTES # (AUTO) 0.7 K/uL (0.1-1.0); MONOCYTES % (AUTO) 12.6 % (2.0-9.0); NEUTROPHILS # (AUTO) 3.2 K/uL (1.8-7.7); NEUTROPHILS % (AUTO) 57.1 % (40.0-70.0); PLATELET COUNT (AUTO) 201 K/uL (150-450); RED BLOOD CELL COUNT(AUTO) 4.45 MIL/uL (4.50-5.90); RED CELL DISTRIBUTION WIDTH 13.7 % (11.5-14.5)
[2019-01-20 11:36] LABS: ANION GAP 6 mmol/L (8-16); CARBON DIOXIDE 30 mmol/L (22-29); CHLORIDE 104 mmol/L (98-107); CREATININE 0.95 mg/dL (0.60-1.30); GLOMERULAR FILTR. RATE CALC > 60 mL/min (>60); GLUCOSE,RANDOM 76 mg/dL (70-110); POTASSIUM 4.3 mmol/L (3.5-5.1); SODIUM SERUM 140 mmol/L (136-145); UREA NITROGEN, BLOOD 17 mg/dL (7-18)
[2019-01-20 11:41] LABS: ALANINE AMINOTRANSFERASE 44 U/L (12-78); ALBUMIN 2.7 g/dL (3.4-5.0); ALKALINE PHOSPHATASE 113 U/L (46-116); ASPARTATE AMINOTRANSFERASE 38 U/L (15-37); BILIRUBIN,TOTAL 0.7 mg/dL (0.1-1.0)
[2019-01-20 11:53] LABS: AMPHET/METH SCREEN,URINE NEGATIVE (NEGATIVE); BARBITURATE SCREEN, URINE NEGATIVE (NEGATIVE); BENZODIAZEPINES SCREEN,URINE NEGATIVE (NEGATIVE); CANNABINOID SCREEN,URINE NEGATIVE (NEGATIVE); COCAINE SCREEN,URINE NEGATIVE (NEGATIVE); METHADONE SCREEN, URINE NEGATIVE (NEGATIVE); OPIATE SCREEN,URINE NEGATIVE (NEGATIVE)
[2019-01-20 11:54] LABS: VALPROIC ACID 88 mcg/mL (50-100)
[2019-01-20 11:55] LABS: PHENCYCLIDINE SCREEN,URINE NEGATIVE (NEGATIVE)
[2019-01-20] MEDS ORDERED: DiphenhydrAMINE HCL 25 MG CAPSULE PO ONE (12:45)
[2019-01-20] MEDS ORDERED: LORazepam 2 MG TABLET PO ONE (12:45)
[2019-01-20] MEDS ORDERED: HALOPERIDOL 5 MG TABLET PO ONE (12:45)
[2019-01-20] MEDS ORDERED: IBUPROFEN 600 MG TABLET PO ONE (15:45)
[2019-01-20] MEDS ORDERED: MAGNESIUM HYDROXIDE SUSPENSION 30 ML UDCUP PO PRN (19:45)
[2019-01-20] MEDS ORDERED: GuaiFENesin/D-METHORPHAN [SUGAR-FREE] 200-20MG/10 ML SYRUP UDCUP PO PRN (19:45)
[2019-01-20] MEDS ORDERED: PETROLATUM,WHITE 28 GM JELLY TP PRN (19:45)
[2019-01-20] MEDS ORDERED: ACETAMINOPHEN 325 MG TABLET PO PRN (19:45)
[2019-01-20] MEDS ORDERED: MAG HYDROX/AL HYDROX/SIMETH ES 30 ML SUSPENSION UDCUP PO PRN (19:45)
[2019-01-20] MEDS ORDERED: ALBUTEROL SULFATE HFA 90 MCG/PUFF 8 GM INHALER IH PRN (19:45)
[2019-01-20] MEDS ORDERED: LOPERAMIDE HCL 2 MG CAPSULE PO PRN (19:45)
[2019-01-20] MEDS ORDERED: CloNIDine HCL 0.1 MG TABLET PO PRN (19:45)
[2019-01-20] MEDS ORDERED: ONDANSETRON HCL 4 MG TABLET PO PRN (19:45)
[2019-01-20] MEDS ORDERED: DOCUSATE SODIUM 100 MG CAPSULE PO PRN (19:45)
[2019-01-20] MEDS ORDERED: PNEUMOCOCCAL VACCINE POLYVALENT 0.5 ML VIAL [PPSV23] IM ONE (22:00)
[2019-01-20] MEDS ORDERED: -PHARMACY VACCINE NOTE- MISC ONE (22:00)
[2019-01-20 22:30] VITALS: BP 124/78
[2019-01-21] MEDS: LORazepam 2 MG TABLET PO PRN (01:58)
[2019-01-21 06:11] LABS: BASOPHILS % (AUTO) 0.3 % (0.0-2.0); EOSINOPHILS % (AUTO) 3.9 % (1.0-6.0); HEMATOCRIT 35.3 % (41-53); HEMOGLOBIN 12.5 g/dL (13.5-17.5); LYMPHOCYTES # (AUTO) 1.8 K/uL (1.0-4.8); LYMPHOCYTES % (AUTO) 31.7 % (22.0-44.0); MEAN CORPUSCULAR HEMOGLOBIN 31.7 pg (26.0-34.0); MEAN CORPUSCULAR HGB CONC 35.5 G/dL (31.0-37.0); MEAN CORPUSCULAR VOLUME 89 fL (80-100); MONOCYTES # (AUTO) 0.6 K/uL (0.1-1.0); MONOCYTES % (AUTO) 11.3 % (2.0-9.0); NEUTROPHILS % (AUTO) 52.8 % (40.0-70.0); PLATELET COUNT (AUTO) 166 K/uL (150-450); RED BLOOD CELL COUNT(AUTO) 3.95 MIL/uL (4.50-5.90); RED CELL DISTRIBUTION WIDTH 13.6 % (11.5-14.5)
[2019-01-21 06:22] LABS: HEMOGLOBIN A1C 5.2 % (4.5-6.2)
[2019-01-21 06:48] LABS: ALANINE AMINOTRANSFERASE 37 U/L (12-78); ALBUMIN 2.4 g/dL (3.4-5.0); ALKALINE PHOSPHATASE 98 U/L (46-116); ANION GAP 4 mmol/L (8-16); ASPARTATE AMINOTRANSFERASE 32 U/L (15-37); BILIRUBIN,TOTAL 0.6 mg/dL (0.1-1.0); CALCIUM, TOTAL 8.3 mg/dL (8.8-10.5); CARBON DIOXIDE 31 mmol/L (22-29); CHLORIDE 105 mmol/L (98-107); CHOL/HDL RATIO 3.5 (4.2-7.3); CHOLESTEROL 123 mg/dL (131-200); CREATININE 0.91 mg/dL (0.60-1.30); GLOMERULAR FILTR. RATE CALC > 60 mL/min (>60); GLUCOSE,RANDOM 89 mg/dL (70-110); HDL CHOLESTEROL 35 mg/dL (40-60); LDL CHOL (CALC.) 76 mg/dL (0-130); POTASSIUM 4.1 mmol/L (3.5-5.1); SODIUM SERUM 140 mmol/L (136-145); THYROID STIMULATING HORMONE 2.74 uIU/mL (0.36-3.74); TOTAL PROTEIN, SERUM 5.8 g/dL (6.4-8.2); TRIGLYCERIDES 59 mg/dL (15-150); UREA NITROGEN, BLOOD 19 mg/dL (7-18)
[2019-01-21 08:34] VITALS: BP 143/77
[2019-01-21] MEDS ORDERED: ARIP15TA2 PO (12:37)
[2019-01-21] MEDS ORDERED: FLUO-191 PO (12:37)
[2019-01-21] MEDS ORDERED: ZOLP10TA7 PO (12:37)
[2019-01-21] MEDS: VALPROIC ACID 250 MG/5 ML SYRUP UDCUP PO SCH ×2 (12:49→21:54)
[2019-01-21] MEDS: FLUoxetine HCL 20 MG CAPSULE PO SCH (12:50)
[2019-01-21] MEDS ORDERED: HALOPERIDOL LACTATE 5 MG/ML VIAL IM ONE ×2 (13:00→23:00)
[2019-01-21] MEDS ORDERED: DiphenhydrAMINE HCL 50 MG/ML VIAL IM ONE ×2 (13:00→23:00)
[2019-01-21] MEDS ORDERED: LORazepam 2 MG/ML VIAL IM ONE ×2 (13:00→23:00)
[2019-01-21] MEDS: FluPHENAZine HCL 10 MG TABLET PO SCH ×2 (13:26→21:53)
[2019-01-21] MEDS: NICOTINE 14 MG/24 HOUR PATCH TD PRN ×2 (13:45→14:06)
[2019-01-22] MEDS: FLUoxetine HCL 20 MG CAPSULE PO SCH (09:16)
[2019-01-22] MEDS: VALPROIC ACID 250 MG/5 ML SYRUP UDCUP PO SCH ×2 (09:16→20:20)
[2019-01-22] MEDS: FluPHENAZine HCL 10 MG TABLET PO SCH ×2 (09:57→20:20)
[2019-01-22] MEDS ORDERED: ARIP882S IM (13:20)
[2019-01-23 09:19] VITALS: BP 151/78
[2019-01-23] MEDS: FluPHENAZine HCL 10 MG TABLET PO SCH ×2 (09:53→20:20)
[2019-01-23] MEDS: VALPROIC ACID 250 MG/5 ML SYRUP UDCUP PO SCH ×2 (09:53→20:20)
[2019-01-23] MEDS: FLUoxetine HCL 20 MG CAPSULE PO SCH (09:53)
[2019-01-23] MEDS: ARIPiprazole LAUROXIL ER SUSPENSION 882 MG/3.2 ML SYRINGE IM SCH (10:46)
[2019-01-23 16:00] VITALS: BP 118/63
[2019-01-24] MEDS: FLUoxetine HCL 20 MG CAPSULE PO SCH (09:14)
[2019-01-24] MEDS: FluPHENAZine HCL 10 MG TABLET PO SCH ×2 (09:14→20:20)
[2019-01-24] MEDS: VALPROIC ACID 250 MG/5 ML SYRUP UDCUP PO SCH ×2 (09:15→20:20)
[2019-01-24 12:40] VITALS: BP 132/70
[2019-01-24 19:21] VITALS: BP 130/74
[2019-01-24] MEDS: ZOLPIDEM TARTRATE 10 MG TABLET PO PRN (20:50)
[2019-01-25] MEDS: FluPHENAZine HCL 10 MG TABLET PO SCH ×2 (07:55→20:01)
[2019-01-25] MEDS: FLUoxetine HCL 20 MG CAPSULE PO SCH (07:56)
[2019-01-25] MEDS: VALPROIC ACID 250 MG/5 ML SYRUP UDCUP PO SCH ×2 (07:56→20:01)
[2019-01-25 08:40] VITALS: BP 136/95
[2019-01-25 19:58] VITALS: BP 121/75
[2019-01-25] MEDS: LORazepam 2 MG TABLET PO PRN (20:00)
[2019-01-26] MEDS: FluPHENAZine HCL 10 MG TABLET PO SCH ×2 (08:45→20:43)
[2019-01-26] MEDS: FLUoxetine HCL 20 MG CAPSULE PO SCH (08:46)
[2019-01-26] MEDS: VALPROIC ACID 250 MG/5 ML SYRUP UDCUP PO SCH ×2 (08:46→20:42)
[2019-01-26 08:52] VITALS: BP 140/94
[2019-01-26] MEDS ORDERED: TUBERCULIN, PURIFIED PROTEIN DERIVATIVE 5 TU/0.1 ML SYRINGE ID ONE (10:45)
[2019-01-26 16:00] VITALS: BP 145/96
[2019-01-26] MEDS: LORazepam 2 MG TABLET PO PRN (18:03)
[2019-01-26] MEDS: ZOLPIDEM TARTRATE 10 MG TABLET PO PRN (20:43)
[2019-01-27] MEDS: VALPROIC ACID 250 MG/5 ML SYRUP UDCUP PO SCH ×2 (08:37→20:09)
[2019-01-27] MEDS: FluPHENAZine HCL 10 MG TABLET PO SCH ×2 (08:37→20:09)
[2019-01-27] MEDS: FLUoxetine HCL 20 MG CAPSULE PO SCH (08:37)
[2019-01-27 09:24] VITALS: BP 138/85
[2019-01-27 19:43] VITALS: BP 132/90
[2019-01-27] MEDS: IBUPROFEN 400 MG TABLET PO PRN (19:52)
[2019-01-27] MEDS: ZOLPIDEM TARTRATE 10 MG TABLET PO PRN (20:48)
[2019-01-28] MEDS: FLUoxetine HCL 20 MG CAPSULE PO SCH (08:19)
[2019-01-28] MEDS: VALPROIC ACID 250 MG/5 ML SYRUP UDCUP PO SCH ×2 (08:20→20:50)
[2019-01-28] MEDS: FluPHENAZine HCL 10 MG TABLET PO SCH ×2 (08:20→20:50)
[2019-01-28 08:24] VITALS: BP 117/71
[2019-01-28] MEDS ORDERED: DiphenhydrAMINE HCL 50 MG/ML VIAL IM ONE (19:00)
[2019-01-28] MEDS ORDERED: HALOPERIDOL LACTATE 5 MG/ML VIAL IM ONE (19:00)
[2019-01-28] MEDS ORDERED: LORazepam 2 MG/ML VIAL IM ONE (19:00)
[2019-01-28 23:00] VITALS: BP 129/75
[2019-01-29] MEDS: VALPROIC ACID 250 MG/5 ML SYRUP UDCUP PO SCH ×2 (08:23→21:13)
[2019-01-29] MEDS: FLUoxetine HCL 20 MG CAPSULE PO SCH (08:23)
[2019-01-29] MEDS: FluPHENAZine HCL 10 MG TABLET PO SCH ×2 (08:23→21:13)
[2019-01-29] MEDS: LORazepam 2 MG TABLET PO PRN ×2 (08:26→22:50)
[2019-01-29 10:55] VITALS: BP 129/51
[2019-01-29] MEDS: ZOLPIDEM TARTRATE 10 MG TABLET PO PRN (21:13)
[2019-01-29 22:46] VITALS: BP 125/70
[2019-01-29] MEDS: HALOPERIDOL 5 MG TABLET PO PRN (22:50)
[2019-01-30 08:00] VITALS: BP 127/82
[2019-01-30] MEDS: HALOPERIDOL 5 MG TABLET PO PRN ×2 (09:35→20:43)
[2019-01-30] MEDS: FLUoxetine HCL 20 MG CAPSULE PO SCH (09:35)
[2019-01-30] MEDS: FluPHENAZine HCL 10 MG TABLET PO SCH ×2 (09:35→20:01)
[2019-01-30] MEDS: VALPROIC ACID 250 MG/5 ML SYRUP UDCUP PO SCH ×2 (09:35→20:01)
[2019-01-30] MEDS: LORazepam 2 MG TABLET PO PRN ×2 (09:35→20:42)
[2019-01-30 16:00] VITALS: BP 110/66
[2019-01-31 08:00] VITALS: BP 131/93
[2019-01-31] MEDS: FluPHENAZine HCL 10 MG TABLET PO SCH ×2 (09:34→20:43)
[2019-01-31] MEDS: FLUoxetine HCL 20 MG CAPSULE PO SCH (09:34)
[2019-01-31] MEDS: VALPROIC ACID 250 MG/5 ML SYRUP UDCUP PO SCH ×2 (09:35→20:43)
[2019-01-31 18:24] VITALS: BP 132/100
[2019-01-31] MEDS: LORazepam 2 MG TABLET PO PRN (18:24)
[2019-01-31] MEDS: ZOLPIDEM TARTRATE 10 MG TABLET PO PRN (20:43)
[2019-02-01] MEDS: FLUoxetine HCL 20 MG CAPSULE PO SCH (08:52)
[2019-02-01] MEDS: FluPHENAZine HCL 10 MG TABLET PO SCH ×2 (08:52→21:21)
[2019-02-01] MEDS: VALPROIC ACID 250 MG/5 ML SYRUP UDCUP PO SCH ×2 (08:53→21:21)
[2019-02-01 18:00] VITALS: BP 126/91
[2019-02-01] MEDS: ZOLPIDEM TARTRATE 10 MG TABLET PO PRN (21:21)
[2019-02-02] MEDS: FluPHENAZine HCL 10 MG TABLET PO SCH ×2 (10:57→20:40)
[2019-02-02] MEDS: VALPROIC ACID 250 MG/5 ML SYRUP UDCUP PO SCH ×2 (10:58→20:40)
[2019-02-02] MEDS: FLUoxetine HCL 20 MG CAPSULE PO SCH (10:58)
[2019-02-02 16:00] VITALS: BP 126/73
[2019-02-02] MEDS: ZOLPIDEM TARTRATE 10 MG TABLET PO PRN (20:40)
[2019-02-03] MEDS: FluPHENAZine HCL 10 MG TABLET PO SCH ×2 (09:12→20:44)
[2019-02-03] MEDS: FLUoxetine HCL 20 MG CAPSULE PO SCH (09:12)
[2019-02-03] MEDS: VALPROIC ACID 250 MG/5 ML SYRUP UDCUP PO SCH ×2 (09:13→20:44)
[2019-02-03 09:20] VITALS: BP 107/56
[2019-02-03] MEDS: HALOPERIDOL 5 MG TABLET PO PRN (15:56)
[2019-02-03] MEDS: LORazepam 2 MG TABLET PO PRN (15:56)
[2019-02-03 17:08] VITALS: BP 137/71
[2019-02-03] MEDS: ZOLPIDEM TARTRATE 10 MG TABLET PO PRN (20:44)
[2019-02-04] MEDS: VALPROIC ACID 250 MG/5 ML SYRUP UDCUP PO SCH ×2 (08:25→20:43)
[2019-02-04] MEDS: FluPHENAZine HCL 10 MG TABLET PO SCH ×2 (08:26→20:43)
[2019-02-04] MEDS: FLUoxetine HCL 20 MG CAPSULE PO SCH (08:26)
[2019-02-04 16:08] VITALS: BP 133/67
[2019-02-04] MEDS: ZOLPIDEM TARTRATE 10 MG TABLET PO PRN (20:34)
[2019-02-05] MEDS: FluPHENAZine HCL 10 MG TABLET PO SCH ×2 (08:03→20:37)
[2019-02-05] MEDS: FLUoxetine HCL 20 MG CAPSULE PO SCH (08:03)
[2019-02-05] MEDS: VALPROIC ACID 250 MG/5 ML SYRUP UDCUP PO SCH ×2 (08:04→20:37)
[2019-02-05 08:54] VITALS: BP 124/66
[2019-02-05] MEDS: LORazepam 2 MG TABLET PO PRN (16:45)
[2019-02-05] MEDS: HALOPERIDOL 5 MG TABLET PO PRN (16:45)
[2019-02-05 16:51] VITALS: BP 129/79
[2019-02-05] MEDS ORDERED: LORazepam 2 MG/ML VIAL IM ONE (19:15)
[2019-02-05] MEDS ORDERED: DiphenhydrAMINE HCL 50 MG/ML VIAL IM ONE (19:15)
[2019-02-05] MEDS ORDERED: HALOPERIDOL LACTATE 5 MG/ML VIAL IM ONE (19:15)
[2019-02-06] MEDS: LORazepam 2 MG TABLET PO PRN (08:40)
[2019-02-06] MEDS: VALPROIC ACID 250 MG/5 ML SYRUP UDCUP PO SCH ×2 (08:40→20:02)
[2019-02-06] MEDS: FLUoxetine HCL 20 MG CAPSULE PO SCH (08:41)
[2019-02-06] MEDS: FluPHENAZine HCL 10 MG TABLET PO SCH ×2 (08:41→20:02)
[2019-02-06 09:54] VITALS: BP 108/76
[2019-02-07 00:05] VITALS: BP 136/93
[2019-02-07] MEDS: ZOLPIDEM TARTRATE 10 MG TABLET PO PRN ×2 (00:08→20:13)
[2019-02-07] MEDS: LORazepam 2 MG TABLET PO PRN (00:24)
[2019-02-07 08:16] VITALS: BP 137/92
[2019-02-07] MEDS: FLUoxetine HCL 20 MG CAPSULE PO SCH (08:36)
[2019-02-07] MEDS: FluPHENAZine HCL 10 MG TABLET PO SCH ×2 (08:36→20:13)
[2019-02-07] MEDS: VALPROIC ACID 250 MG/5 ML SYRUP UDCUP PO SCH ×2 (08:37→20:13)
[2019-02-07 16:50] VITALS: BP 142/94
[2019-02-08] MEDS: VALPROIC ACID 250 MG/5 ML SYRUP UDCUP PO SCH ×2 (08:12→20:08)
[2019-02-08] MEDS: FluPHENAZine HCL 10 MG TABLET PO SCH ×2 (08:12→20:08)
[2019-02-08] MEDS: FLUoxetine HCL 20 MG CAPSULE PO SCH (08:12)
[2019-02-08 08:16] VITALS: BP 139/91
[2019-02-08] MEDS: ZOLPIDEM TARTRATE 10 MG TABLET PO PRN (20:10)
[2019-02-08 20:35] VITALS: BP 134/92
[2019-02-09 08:00] VITALS: BP 116/82
[2019-02-09] MEDS: FluPHENAZine HCL 10 MG TABLET PO SCH ×2 (08:51→20:04)
[2019-02-09] MEDS: VALPROIC ACID 250 MG/5 ML SYRUP UDCUP PO SCH ×2 (08:51→20:04)
[2019-02-09] MEDS: FLUoxetine HCL 20 MG CAPSULE PO SCH (08:51)
[2019-02-09] MEDS: IBUPROFEN 400 MG TABLET PO PRN (12:55)
[2019-02-09] MEDS: LORazepam 2 MG TABLET PO PRN ×2 (12:55→17:47)
[2019-02-09] MEDS: HALOPERIDOL 5 MG TABLET PO PRN (17:47)
[2019-02-09 20:00] VITALS: BP 134/95
[2019-02-09] MEDS: ZOLPIDEM TARTRATE 10 MG TABLET PO PRN (20:04)
[2019-02-10] MEDS: VALPROIC ACID 250 MG/5 ML SYRUP UDCUP PO SCH ×2 (09:23→20:07)
[2019-02-10] MEDS: FLUoxetine HCL 20 MG CAPSULE PO SCH (09:23)
[2019-02-10] MEDS: FluPHENAZine HCL 10 MG TABLET PO SCH ×2 (09:25→20:06)
[2019-02-10 17:29] VITALS: BP 140/93
[2019-02-10 17:50] VITALS: BP 135/96
[2019-02-10] MEDS: HALOPERIDOL 5 MG TABLET PO PRN (17:50)
[2019-02-10] MEDS: LORazepam 2 MG TABLET PO PRN (17:50)
[2019-02-10 17:53] VITALS: BP 138/95
[2019-02-11] MEDS: FluPHENAZine HCL 10 MG TABLET PO SCH ×2 (09:17→21:10)
[2019-02-11] MEDS: FLUoxetine HCL 20 MG CAPSULE PO SCH (09:17)
[2019-02-11] MEDS: VALPROIC ACID 250 MG/5 ML SYRUP UDCUP PO SCH ×2 (09:18→20:57)
[2019-02-11 14:37] VITALS: BP 132/98
[2019-02-11 16:25] VITALS: BP 137/82
[2019-02-11] MEDS: IBUPROFEN 400 MG TABLET PO PRN (18:59)
[2019-02-11 19:01] VITALS: BP 128/72
[2019-02-11] MEDS ORDERED: DiphenhydrAMINE HCL 50 MG/ML VIAL IM ONE (19:45)
[2019-02-11] MEDS ORDERED: LORazepam 2 MG/ML VIAL IM ONE (19:45)
[2019-02-11] MEDS ORDERED: HALOPERIDOL LACTATE 5 MG/ML VIAL IM ONE (19:45)
[2019-02-12 08:00] VITALS: BP 115/65
[2019-02-12] MEDS: FLUoxetine HCL 20 MG CAPSULE PO SCH (10:37)
[2019-02-12] MEDS: FluPHENAZine HCL 10 MG TABLET PO SCH ×2 (10:37→20:40)
[2019-02-12] MEDS: VALPROIC ACID 250 MG/5 ML SYRUP UDCUP PO SCH ×2 (10:37→20:40)
[2019-02-12 16:50] VITALS: BP 150/74
[2019-02-13 08:00] VITALS: BP 132/75
[2019-02-13] MEDS: FluPHENAZine HCL 10 MG TABLET PO SCH ×2 (09:11→20:44)
[2019-02-13] MEDS: FLUoxetine HCL 20 MG CAPSULE PO SCH (09:12)
[2019-02-13] MEDS: VALPROIC ACID 250 MG/5 ML SYRUP UDCUP PO SCH ×2 (09:12→20:44)
[2019-02-13] MEDS: LORazepam 2 MG TABLET PO PRN (13:38)
[2019-02-13] MEDS: HALOPERIDOL 5 MG TABLET PO PRN (13:38)
[2019-02-13 17:29] VITALS: BP 132/78
[2019-02-13] MEDS: ZOLPIDEM TARTRATE 10 MG TABLET PO PRN (20:46)
[2019-02-14 08:00] VITALS: BP 147/85
[2019-02-14] MEDS: FluPHENAZine HCL 10 MG TABLET PO SCH ×2 (10:07→20:59)
[2019-02-14] MEDS: VALPROIC ACID 250 MG/5 ML SYRUP UDCUP PO SCH ×2 (10:08→21:00)
[2019-02-14] MEDS: FLUoxetine HCL 20 MG CAPSULE PO SCH (10:08)
[2019-02-14] MEDS: LORazepam 2 MG TABLET PO PRN (18:27)
[2019-02-14 20:41] VITALS: BP 122/67
[2019-02-14] MEDS: ZOLPIDEM TARTRATE 10 MG TABLET PO PRN (21:00)
[2019-02-15 08:00] VITALS: BP 113/63
[2019-02-15] MEDS: FluPHENAZine HCL 10 MG TABLET PO SCH ×2 (08:34→20:06)
[2019-02-15] MEDS: VALPROIC ACID 250 MG/5 ML SYRUP UDCUP PO SCH ×2 (08:34→20:06)
[2019-02-15] MEDS: FLUoxetine HCL 20 MG CAPSULE PO SCH (08:34)
[2019-02-15 16:32] VITALS: BP 114/89
[2019-02-15] MEDS: LORazepam 2 MG TABLET PO PRN (16:44)
[2019-02-15] MEDS: ZOLPIDEM TARTRATE 10 MG TABLET PO PRN (20:58)
[2019-02-16 08:26] VITALS: BP 156/93
[2019-02-16] MEDS: VALPROIC ACID 250 MG/5 ML SYRUP UDCUP PO SCH ×2 (09:45→20:02)
[2019-02-16] MEDS: FLUoxetine HCL 20 MG CAPSULE PO SCH (09:45)
[2019-02-16] MEDS: HALOPERIDOL 5 MG TABLET PO PRN (09:45)
[2019-02-16] MEDS: FluPHENAZine HCL 10 MG TABLET PO SCH ×2 (09:46→20:02)
[2019-02-16 18:23] VITALS: BP 141/78
[2019-02-16] MEDS ORDERED: HALOPERIDOL LACTATE 5 MG/ML VIAL IM ONE (19:30)
[2019-02-16] MEDS ORDERED: DiphenhydrAMINE HCL 50 MG/ML VIAL IM ONE (19:30)
[2019-02-16] MEDS ORDERED: LORazepam 2 MG/ML VIAL IM ONE (19:30)
[2019-02-17 08:30] VITALS: BP 117/71
[2019-02-17] MEDS: FLUoxetine HCL 20 MG CAPSULE PO SCH (09:22)
[2019-02-17] MEDS: VALPROIC ACID 250 MG/5 ML SYRUP UDCUP PO SCH ×2 (09:22→20:06)
[2019-02-17] MEDS: FluPHENAZine HCL 10 MG TABLET PO SCH ×2 (09:22→20:06)
[2019-02-17 16:54] VITALS: BP 123/76
[2019-02-17] MEDS: ZOLPIDEM TARTRATE 10 MG TABLET PO PRN (20:35)
[2019-02-18] MEDS: FluPHENAZine HCL 10 MG TABLET PO SCH ×2 (08:39→21:30)
[2019-02-18] MEDS: VALPROIC ACID 250 MG/5 ML SYRUP UDCUP PO SCH ×2 (08:39→21:29)
[2019-02-18] MEDS: FLUoxetine HCL 20 MG CAPSULE PO SCH (08:39)
[2019-02-18 08:43] VITALS: BP 137/70
[2019-02-18] MEDS: HALOPERIDOL 5 MG TABLET PO PRN (16:06)
[2019-02-18] MEDS: LORazepam 2 MG TABLET PO PRN (16:06)
[2019-02-18 19:45] VITALS: BP 130/79
[2019-02-18] MEDS: ZOLPIDEM TARTRATE 10 MG TABLET PO PRN (21:30)
[2019-02-19] MEDS: VALPROIC ACID 250 MG/5 ML SYRUP UDCUP PO SCH ×2 (08:28→21:59)
[2019-02-19] MEDS: FLUoxetine HCL 20 MG CAPSULE PO SCH (08:28)
[2019-02-19] MEDS: FluPHENAZine HCL 10 MG TABLET PO SCH ×2 (08:28→21:58)
[2019-02-19] MEDS: HALOPERIDOL 5 MG TABLET PO PRN (08:29)
[2019-02-19] MEDS: LORazepam 2 MG TABLET PO PRN (08:29)
[2019-02-19 09:00] VITALS: BP 136/96
[2019-02-19 16:46] VITALS: BP 134/84
[2019-02-19] MEDS: ZOLPIDEM TARTRATE 10 MG TABLET PO PRN (21:58)
[2019-02-20 08:00] VITALS: BP 105/63
[2019-02-20] MEDS: FLUoxetine HCL 20 MG CAPSULE PO SCH (09:08)
[2019-02-20] MEDS: FluPHENAZine HCL 10 MG TABLET PO SCH ×2 (09:08→20:24)
[2019-02-20] MEDS: VALPROIC ACID 250 MG/5 ML SYRUP UDCUP PO SCH ×2 (09:08→20:24)
[2019-02-20] MEDS: ARIPiprazole LAUROXIL ER SUSPENSION 882 MG/3.2 ML SYRINGE IM SCH (09:56)
[2019-02-20 16:00] VITALS: BP 112/66
[2019-02-20] MEDS: ZOLPIDEM TARTRATE 10 MG TABLET PO PRN (20:25)
[2019-02-21 08:00] VITALS: BP 139/82
[2019-02-21] MEDS: FluPHENAZine HCL 10 MG TABLET PO SCH ×2 (08:14→20:02)
[2019-02-21] MEDS: FLUoxetine HCL 20 MG CAPSULE PO SCH (08:14)
[2019-02-21] MEDS: VALPROIC ACID 250 MG/5 ML SYRUP UDCUP PO SCH ×2 (08:14→20:02)
[2019-02-21] MEDS: LORazepam 2 MG TABLET PO PRN (13:24)
[2019-02-21 19:27] VITALS: BP 129/72
[2019-02-21] MEDS: ZOLPIDEM TARTRATE 10 MG TABLET PO PRN (20:02)
[2019-02-22 08:00] VITALS: BP 114/72
[2019-02-22] MEDS: FluPHENAZine HCL 10 MG TABLET PO SCH ×2 (08:32→20:23)
[2019-02-22] MEDS: LORazepam 2 MG TABLET PO PRN (08:32)
[2019-02-22] MEDS: FLUoxetine HCL 20 MG CAPSULE PO SCH (08:32)
[2019-02-22] MEDS: HALOPERIDOL 5 MG TABLET PO PRN (08:32)
[2019-02-22] MEDS: VALPROIC ACID 250 MG/5 ML SYRUP UDCUP PO SCH ×2 (08:33→20:23)
[2019-02-22 17:53] VITALS: BP 143/89
[2019-02-23 08:44] VITALS: BP 130/58
[2019-02-23] MEDS: LORazepam 2 MG TABLET PO PRN (09:16)
[2019-02-23] MEDS: VALPROIC ACID 250 MG/5 ML SYRUP UDCUP PO SCH ×2 (09:16→20:33)
[2019-02-23] MEDS: FLUoxetine HCL 20 MG CAPSULE PO SCH (09:16)
[2019-02-23] MEDS: FluPHENAZine HCL 10 MG TABLET PO SCH ×2 (09:16→20:13)
[2019-02-23 16:00] VITALS: BP 123/90
[2019-02-24 03:43] VITALS: BP 128/84
[2019-02-24] MEDS: FluPHENAZine HCL 10 MG TABLET PO SCH ×2 (08:02→20:22)
[2019-02-24] MEDS: FLUoxetine HCL 20 MG CAPSULE PO SCH (08:02)
[2019-02-24] MEDS: VALPROIC ACID 250 MG/5 ML SYRUP UDCUP PO SCH ×2 (08:02→20:22)
[2019-02-24 08:26] VITALS: BP 110/64
[2019-02-24] MEDS: LORazepam 2 MG TABLET PO PRN (16:03)
[2019-02-24 17:16] VITALS: BP 127/82
[2019-02-24] MEDS: ZOLPIDEM TARTRATE 10 MG TABLET PO PRN (20:22)
[2019-02-25 08:09] VITALS: BP 132/67
[2019-02-25] MEDS: FluPHENAZine HCL 10 MG TABLET PO SCH ×2 (08:51→20:31)
[2019-02-25] MEDS: FLUoxetine HCL 20 MG CAPSULE PO SCH (08:51)
[2019-02-25] MEDS: VALPROIC ACID 250 MG/5 ML SYRUP UDCUP PO SCH ×2 (08:51→20:32)
[2019-02-25 16:28] VITALS: BP 113/65
[2019-02-25] MEDS: HALOPERIDOL 5 MG TABLET PO PRN (17:35)
[2019-02-25] MEDS: LORazepam 2 MG TABLET PO PRN (17:35)
[2019-02-26 06:07] VITALS: BP 114/78
[2019-02-26] MEDS: HALOPERIDOL 5 MG TABLET PO PRN (08:37)
[2019-02-26] MEDS: FluPHENAZine HCL 10 MG TABLET PO SCH (08:37)
[2019-02-26] MEDS: VALPROIC ACID 250 MG/5 ML SYRUP UDCUP PO SCH (08:37)
[2019-02-26] MEDS: FLUoxetine HCL 20 MG CAPSULE PO SCH (08:37)
[2019-02-26] MEDS: LORazepam 2 MG TABLET PO PRN (08:37)
[2019-02-26 08:43] VITALS: BP 122/84
[2019-02-26] MEDS ORDERED: FLUO-191 PO (09:03)
[2019-02-26] MEDS ORDERED: VALP250S23 PO (09:03)
[2019-02-26] MEDS ORDERED: FLUP10 PO (09:03)
[2019-02-26] MEDS ORDERED: ARIP882S IM (09:03)
[2019-02-26 16:00] VITALS: BP 113/63
== END 2019-02-26 16:35 | disposition home or self-care (01) | DRG 750 ==
LOC: EMS 09:42 → 3EC 17:10 → B3A 02-23 18:30
DX: F20.0 Paranoid schizophrenia (principal); S12.9XXA Fracture of neck, unspecified, initial encounter; D64.9 Anemia, unspecified; F17.200 Nicotine dependence, unspecified, uncomplicated; F11.90 Opioid use, unspecified, uncomplicated; S42.301A Unspecified fracture of shaft of humerus, right arm, initial encounter for closed fracture; S52.033A Displaced fracture of olecranon process with intraarticular extension of unspecified ulna, initial encounter for closed fracture; Z53.20 Procedure and treatment not carried out because of patient's decision for unspecified reasons; R45.87 Impulsiveness; X58.XXXA Exposure to other specified factors, initial encounter; S52.599A Other fractures of lower end of unspecified radius, initial encounter for closed fracture; I12.9 Hypertensive chronic kidney disease with stage 1 through stage 4 chronic kidney disease, or unspecified chronic kidney disease; N18.9 Chronic kidney disease, unspecified; Z79.899 Other long term (current) drug therapy; Z71.6 Tobacco abuse counseling; Z59.0 Homelessness; Y93.89 Activity, other specified; Y92.89 Other specified places as the place of occurrence of the external cause; Y99.8 Other external cause status
CPT/HCPCS: 83036; 84443; 87081; G0480; J1200; J1630; J2060

== ENCOUNTER 2025-03-05 19:49 | Emergency (ER) | payer OTHER ==
[~2025-03-05] VITALS: Ht 180.3 cm; Wt 113.6 kg
[~2025-03-05 19:49] MED LIST changes: -ARIP30TA PO; +ARIP882S2 IM; -DULO20CA17 PO; +FLUO-177 PO; -FLUO10TA3 PO; +FLUP10TA28 PO; -IBUP-2070 PO; -LORA2TAB2 PO; -ZOLP5TAB2 PO
[2025-03-05 19:54] VITALS: BP 143/95; PULSE 83; RESP 20; TEMP 97.5; O2SAT 99
[2025-03-05 20:11] LABS: BASOPHILS % (AUTO) 0.7 % (0.0-2.0); EOSINOPHILS % (AUTO) 3.2 % (1.0-6.0); HEMATOCRIT 47.9 % (41-53); HEMOGLOBIN 15.9 g/dL (13.5-17.5); LYMPHOCYTES # (AUTO) 1.5 K/uL (1.0-4.8); MEAN CORPUSCULAR HEMOGLOBIN 31.6 pg (26.0-34.0); MEAN CORPUSCULAR HGB CONC 33.2 G/dL (31.0-37.0); MEAN CORPUSCULAR VOLUME 95 fL (80-100); MONOCYTES # (AUTO) 0.6 K/uL (0.1-1.0); MONOCYTES % (AUTO) 9.8 % (2.0-9.0); NEUTROPHILS # (AUTO) 3.6 K/uL (1.8-7.7); NEUTROPHILS % (AUTO) 60.3 % (40.0-70.0); PLATELET COUNT (AUTO) 193 K/uL (150-450); RED BLOOD CELL COUNT(AUTO) 5.03 MIL/uL (4.50-5.90); RED CELL DISTRIBUTION WIDTH 14.8 % (11.5-14.5); WHITE BLOOD COUNT (AUTO) 5.9 K/uL (4.5-11.0)
[2025-03-05 20:19] LABS: ANION GAP 3 mmol/L (8-16); CALCIUM, TOTAL 9.2 mg/dL (8.8-10.5); CARBON DIOXIDE 33 mmol/L (22-29); CHLORIDE 101 mmol/L (98-107); CREATININE 0.93 mg/dL (0.60-1.30); GLOMERULAR FILTR. RATE CALC > 60 mL/min (>60); GLUCOSE,RANDOM 113 mg/dL (70-110); POTASSIUM 4.4 mmol/L (3.5-5.1); SODIUM SERUM 137 mmol/L (136-145); UREA NITROGEN, BLOOD 20 mg/dL (7-18)
[2025-03-05 20:25] LABS: ALCOHOL, BLOOD (SERUM) < 3 mg/dL (0-10)
== END 2025-03-05 21:43 | disposition left against medical advice (07) ==
LOC: EMS 19:49
DX: R44.0 Auditory hallucinations (principal); Z53.21 Procedure and treatment not carried out due to patient leaving prior to being seen by health care provider
CPT/HCPCS: 36415; 80048; 85025; G0480

== ENCOUNTER 2025-03-05 22:45 | Emergency (ER) | payer OTHER ==
[~2025-03-05] VITALS: Ht 180.3 cm; Wt 118.2 kg
[2025-03-05 22:47] VITALS: BP 116/85; PULSE 109; RESP 20; TEMP 97.7; O2SAT 96
== END 2025-03-06 03:36 | disposition left against medical advice (07) ==
LOC: EMS 22:45
DX: R44.0 Auditory hallucinations (principal); Z53.21 Procedure and treatment not carried out due to patient leaving prior to being seen by health care provider

== ENCOUNTER → 2025-03-30 | Emergency (ER) | payer OTHER ==
[~2025-03-30] VITALS: Ht 180.3 cm; Wt 95.5 kg
[2025-03-30 18:50] VITALS: BP 146/88; PULSE 90; RESP 18; TEMP 98.3; O2SAT 99
[2025-03-30 20:13] LABS: BASOPHILS % (AUTO) 0.6 % (0.0-2.0); HEMATOCRIT 44.7 % (41-53); LYMPHOCYTES # (AUTO) 2.2 K/uL (1.0-4.8); LYMPHOCYTES % (AUTO) 27.9 % (22.0-44.0); MEAN CORPUSCULAR HEMOGLOBIN 31.3 pg (26.0-34.0); MEAN CORPUSCULAR HGB CONC 33.6 G/dL (31.0-37.0); MEAN CORPUSCULAR VOLUME 93 fL (80-100); MONOCYTES # (AUTO) 0.6 K/uL (0.1-1.0); MONOCYTES % (AUTO) 7.1 % (2.0-9.0); NEUTROPHILS # (AUTO) 4.7 K/uL (1.8-7.7); NEUTROPHILS % (AUTO) 58.4 % (40.0-70.0); PLATELET COUNT (AUTO) 169 K/uL (150-450); RED BLOOD CELL COUNT(AUTO) 4.81 MIL/uL (4.50-5.90)
[2025-03-30 20:22] LABS: COVID AG,FIA SOURCE NASAL SWAB
[2025-03-30 20:27] LABS: APPEARANCE,URINE CLEAR (CLEAR); BILIRUBIN,URINE NEGATIVE (NEGATIVE); COLOR,URINE YELLOW (YELLOW); GLUCOSE, URINE (UA) >=1000 mg/dL (NEGATIVE); KETONES,URINE NEGATIVE (NEGATIVE); LEUKOCYTE ESTERASE ,URINE NEGATIVE (NEGATIVE); NITRATE,URINE NEGATIVE (NEGATIVE); OCCULT BLOOD,URINE NEGATIVE (NEGATIVE); PROTEIN,URINE NEGATIVE (NEGATIVE); SPECIFIC GRAVITIY, URINE 1.031 (1.003-1.030); UROBILINOGEN,URINE <=1.0 mg/dL (<=1.0)
[2025-03-30 20:33] LABS: ALCOHOL, URINE DRUG SCREEN NEGATIVE (NEGATIVE); AMPHET/METH SCREEN,URINE POSITIVE (NEGATIVE); BARBITURATE SCREEN, URINE NEGATIVE (NEGATIVE); BENZODIAZEPINES SCREEN,URINE NEGATIVE (NEGATIVE); CANNABINOID SCREEN,URINE POSITIVE (NEGATIVE); COCAINE SCREEN,URINE NEGATIVE (NEGATIVE); METHADONE SCREEN, URINE NEGATIVE (NEGATIVE); OPIATE SCREEN,URINE NEGATIVE (NEGATIVE); PHENCYCLIDINE SCREEN,URINE NEGATIVE (NEGATIVE)
[2025-03-30 20:35] LABS: ANION GAP 4 mmol/L (8-16); CALCIUM, TOTAL 9.3 mg/dL (8.8-10.5); CARBON DIOXIDE 35 mmol/L (22-29); CHLORIDE 103 mmol/L (98-107); GLOMERULAR FILTR. RATE CALC > 60 mL/min (>60); GLUCOSE,RANDOM 86 mg/dL (70-110); POTASSIUM 4.7 mmol/L (3.5-5.1); SODIUM SERUM 142 mmol/L (136-145); UREA NITROGEN, BLOOD 20 mg/dL (7-18)
[2025-03-30 20:39] LABS: BACTERIA,URINE None Seen /HPF (None Seen); RBC,URINE 0-2 /HPF (0-2); SQUAMOUS EPITHELIAL CELL,UR Rare /LPF (None Seen); WBC,URINE 0-2 /HPF (0-5)
[2025-03-30 20:45] LABS: SARS-COV2 (COVID) ANTIGEN,FIA Negative (Negative)
[2025-03-30 20:56] LABS: ALCOHOL, BLOOD (SERUM) < 3 mg/dL (0-10)
== END | disposition left against medical advice (07) ==
LOC: EMS 18:45
DX: R44.0 Auditory hallucinations (principal); Z20.822 Contact with and (suspected) exposure to COVID-19; Z53.21 Procedure and treatment not carried out due to patient leaving prior to being seen by health care provider
CPT/HCPCS: 80307; 87426; 36415; 80048; 85025; 81001; G0480; 99283

== ENCOUNTER 2025-05-26 19:33 | Emergency (ER) | payer MEDICAID, OTHER ==
[~2025-05-26] VITALS: Ht 180.3 cm; Wt 113.6 kg
[~2025-05-26 19:33] MED LIST changes: -ARIP882S2 IM; +BENZ-247 PO; +DIVA-111 PO; +DIVA-112 PO; +DULO40CA2 PO; -FLUO-177 PO; -FLUP10TA28 PO; +PROP40TA7 PO; -VALP250S23 PO; +[UNRECOGNIZED DRUG - CODE] PO
[2025-05-26 19:45] LABS: COVID AG,FIA SOURCE NASAL SWAB
[2025-05-26 19:56] LABS: BASOPHILS % (AUTO) 0.6 % (0.0-2.0); EOSINOPHILS % (AUTO) 5.1 % (1.0-6.0); HEMATOCRIT 45.3 % (41-53); HEMOGLOBIN 15.2 g/dL (13.5-17.5); LYMPHOCYTES # (AUTO) 2.2 K/uL (1.0-4.8); LYMPHOCYTES % (AUTO) 34.4 % (22.0-44.0); MEAN CORPUSCULAR HEMOGLOBIN 31.4 pg (26.0-34.0); MEAN CORPUSCULAR HGB CONC 33.5 G/dL (31.0-37.0); MEAN CORPUSCULAR VOLUME 94 fL (80-100); MONOCYTES # (AUTO) 0.5 K/uL (0.1-1.0); MONOCYTES % (AUTO) 7.6 % (2.0-9.0); NEUTROPHILS # (AUTO) 3.3 K/uL (1.8-7.7); NEUTROPHILS % (AUTO) 52.3 % (40.0-70.0); PLATELET COUNT (AUTO) 145 K/uL (150-450); RED BLOOD CELL COUNT(AUTO) 4.84 MIL/uL (4.50-5.90); RED CELL DISTRIBUTION WIDTH 14.5 % (11.5-14.5); WHITE BLOOD COUNT (AUTO) 6.3 K/uL (4.5-11.0)
[2025-05-26 20:04] LABS: ANION GAP 2 mmol/L (8-16); CALCIUM, TOTAL 8.6 mg/dL (8.8-10.5); CARBON DIOXIDE 35 mmol/L (22-29); CHLORIDE 102 mmol/L (98-107); CREATININE 1.13 mg/dL (0.60-1.30); GLOMERULAR FILTR. RATE CALC > 60 mL/min (>60); GLUCOSE,RANDOM 98 mg/dL (70-110); POTASSIUM 4.9 mmol/L (3.5-5.1); SODIUM SERUM 139 mmol/L (136-145); UREA NITROGEN, BLOOD 19 mg/dL (7-18)
[2025-05-26 20:12] LABS: SARS-COV2 (COVID) ANTIGEN,FIA Negative (Negative)
[2025-05-26 21:10] LABS: ALCOHOL, URINE DRUG SCREEN NEGATIVE (NEGATIVE); AMPHET/METH SCREEN,URINE NEGATIVE (NEGATIVE); BARBITURATE SCREEN, URINE NEGATIVE (NEGATIVE); BENZODIAZEPINES SCREEN,URINE NEGATIVE (NEGATIVE); CANNABINOID SCREEN,URINE NEGATIVE (NEGATIVE); COCAINE SCREEN,URINE NEGATIVE (NEGATIVE); METHADONE SCREEN, URINE NEGATIVE (NEGATIVE); OPIATE SCREEN,URINE NEGATIVE (NEGATIVE); PHENCYCLIDINE SCREEN,URINE NEGATIVE (NEGATIVE)
[2025-05-27] MEDS: LORazepam 1 MG TABLET PO ONE (00:30)
[2025-05-27 01:00] VITALS: BP 126/71; PULSE 71; RESP 16; TEMP 98.3; O2SAT 98
== END 2025-05-27 01:06 | disposition home or self-care (01) ==
LOC: EMS 19:33
DX: F41.9 Anxiety disorder, unspecified (principal); F31.9 Bipolar disorder, unspecified; I10 Essential (primary) hypertension; F20.9 Schizophrenia, unspecified; F17.210 Nicotine dependence, cigarettes, uncomplicated; F15.90 Other stimulant use, unspecified, uncomplicated; Z98.890 Other specified postprocedural states; Z79.899 Other long term (current) drug therapy; Z20.822 Contact with and (suspected) exposure to COVID-19
CPT/HCPCS: 99283; 87426; 80048; 85025; 36415; 80307; G0480